=== PATIENT | male | born 1975 | race Caucasian/White ===

== ENCOUNTER 2025-03-30 19:42 | Inpatient (IN) | payer MEDICAID, OTHER ==
[~2025-03-30] VITALS: Ht 170.2 cm; Wt 134.2 kg
--- NOTE | 2025-03-30 19:58 | ELECTROCARDIOGRAPH REPORT ---
[facility] Test Date: 2025-03-30 Test Time: 19:54:56 Pat Name: DENITA MENDIETA Department: EMERGENCY ROOM Room: [place] [address] Gender: M Certification Engineer: : 1975 Requested By: OMER WHITMORE Order Number: [id number] Reading MD: Dr. Jose Cruz Measurements Intervals [place] Rate: 84 P: 0 IA: 0 QRS: -11 QRSD: 123 T: 192 QT: 319 QTc: 378 Interpretive Statements Afib/flut and V-paced complexes No further rhythm analysis attempted due to paced rhythm Nonspecific intraventricular conduction delay Nonspecific T abnrm, anterolateral leads Baseline wander in lead(s) V6 Electronically Signed On 03-31-2025 19:18:[address] Jose Cruz Please click the below link to view image of tracing.
--- NOTE | 2025-03-30 20:12 | Physician Documentation ---
History of Present Illness ~ Chief Complaint: Dizziness Stated Complaint: FALL Time Seen by MD: 20:00 HPI This very pleasant 49-year-old male presents after having a dizzy spell and a fall this afternoon on his right hip and knee this occurred at 5:00 p.m.. States he was looking for an apartment was going to his car felt slightly dizzy in the next thing he knew he was on the ground. Does not recall all of the event. Patient has a significant cardiac in neurological history including congestive heart failure atrial fibrillation TIA in 2005 TIA in May2024 in . He has had intermittent dizziness since May 2025 accompanied with nausea. His symptoms were significant enough that it precipitated referral to get a colonoscopy and endoscopy where a precancerous mass was removed along with multiple polyps the patient states 12% of the time he is in atrial fibrillation He states that his blood pressure is normally not low like it has been today. 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 He reports mi lead increased shortness of breath along with a current headache. In 2007 he had his appendix remove and in 2018 he has a had his gallbladder removed He is compliant with his medications the only medication he has not taken tonight is the 2nd dose of Lasix 40 mg. He takes Eliquis for atrial fibrillation as well. Patient does not currently have a social welfare research worker's as he is in between moving and job placement Review of Systems All Other Systems at this time: Reviewed and Negative ROS As stated above in the HPI, otherwise all systems are reviewed and negative. Physical Exam Vital Signs: Temperature: 97.6, Heart Rate: 105, Respiratory Rate: 16, BP: 93/61, Pulse Oximetry: 98 Oxygen Flow Rate: 0 Physical Exam General: Alert, no apparent distress. Respiratory: Lungs clear, no respiratory distress. Cardiovascular:AFIB rhythm, no murmurs. Gastrointestinal: Soft, nontender, nondistended. Bowels sounds present. Extremities: Normal range of motion, 3 +pitting edema BL/LE Neurologic: Oriented x4. Psychiatric: Normal mood and affect. Progress Results/Orders Results/Orders Orders - JACQUES PHAN NP Ct Head (03/30/25 21:01) Page Hospitalist (03/30/25 ) Completed Orders - JACQUES PHAN ASSISTANT TRACK COACH Furosemide Inj (Lasix Inj) (03/30/25 20:50) Normal Saline 1000ml (0.9% Sodium Chlori (03/30/25 20:50) Ct Head (03/30/25 21:01) Vital Signs 03/30/25 03/30/25 19:45 20:33 Temp 97.6 Pulse 105 Resp 16 16 B/P (MAP) 93/61 Pulse Ox 98 O2 Flow Rate 0 Laboratory Tests Test 03/30/25 19:54 03/30/25 19:58 Glucometer 150 H White Blood Count 10.0 Red Blood Count 3.59 L Hemoglobin 11.4 L Hematocrit 34.1 L Mean Corpuscular Volume 95.0 Mean Corpuscular Hemoglobin 31.7 H Mean Corpuscular Hemoglobin Concent 33.3 Red Cell Distribution Width 13.8 Platelet Count 342 Mean Platelet Volume 7.4 Neutrophils (%) (Auto) 55.8 Lymphocytes (%) (Auto) 33.5 Monocytes (%) (Auto) 6.6 Eosinophils (%) (Auto) 3.7 Basophils (%) (Auto) 0.4 Neutrophils # (Auto) 5.6 Lymphocytes # (Auto) 3.4 Monocytes # (Auto) 0.7 Eosinophils # (Auto) 0.4 Basophils # (Auto) 0.0 CBC Comment Sodium Level 132 L Potassium Level 5.4 H Chloride Level 101 Carbon Dioxide Level 20.8 L Anion Gap 10 Blood Urea Nitrogen 49 H Creatinine 1.78 H Estimated GFR/1.73 m2 41 BUN/Creatinine Ratio 27.5 H Glucose Level 134 H Calcium Level 9.2 Troponin I High Sensitivity 6 Pro-B-Type Natriuretic Peptide 714 H Albumin 3.9 Chemistry Comments Medical Decision Making Findings This 49-year-old male presented with concerning signs including suspected syncope, symptomatic hypotension and a ground level fall.. His CT came back without any notable intracranial abnormalities. However this patient is an excellent historian and reports not having any previous kidney problems or injury. His laboratory results indicate he has an elevated BUN at 49 grossly diminished GFR indicating likely acute kidney injury. Additionally his legs are grossly edematous and he has been compliant with taking Lasix. Lastly he does not have a current social welfare research worker therefore I am going to request hospitalization for evaluation and hopefully a cardiology consult Differential Dx:Considerations: Include: anemia, CVA, dehydration, dysrhythmia, electrolyte imbalance, encephalopathy, Guillain-Covina, hypoglycemia, hypotension, hypovolemia, labyrinthitis, Meniere's disease, myasathenia gravis, myocardial infarction, pulmonary embolus, renal failure, respiratory failure, TIA, VBI, vertigo central, vertigo peripheral, vestibular neuronitis, other Departure Disposition: ADMITTED INPATIENT Impression: Primary Impression: Dizziness Additional Impressions: JONATHAN (acute kidney injury) Fall Condition: Stable Referrals: NO PRIMARY CARE PROVIDER (PCP) Education Educated: Patient Signature Scribe Signature: u Attestation: Scribed for Jacques Phan Filter Tender by Jacques Cisse NP . 03/30/25 20:46 JACQUES PHAN NP Mar 30, 2025 20:11
[2025-03-30 20:16] LABS: MEAN PLATELET VOLUME 7.4 FL (7.4-10.4); RED CELL DISTRIBUTION WIDTH 13.8 % (11.5-14.5)
--- NOTE | 2025-03-30 20:32 | RADIOLOGY REPORT ---
CLINICAL HISTORY: CP TECHNIQUE: Single view of the chest was obtained. COMPARISON: None FINDINGS: The heart size and pulmonary vasculature are normal. The lungs are clear. IMPRESSION: NO ACUTE CARDIOPULMONARY PROCESS.
--- NOTE | 2025-03-30 20:32 | RADIOLOGY REPORT ---
CLINICAL HISTORY: HIP PAIN,RIGHT TECHNIQUE: 2 views of the right hip were obtained. COMPARISON: None FINDINGS: No acute fracture or dislocation is seen. There are no significant degenerative changes. No significant soft tissue abnormality is seen. IMPRESSION: NO ACUTE RADIOGRAPHIC ABNORMALITY OF THE RIGHT HIP.
--- NOTE | 2025-03-30 20:33 | RADIOLOGY REPORT ---
CLINICAL HISTORY: KNEE PAIN,RIGHT TECHNIQUE: 4 views of the right knee were obtained. COMPARISON: None FINDINGS: No acute fracture or dislocation is seen. No joint effusion is evident. There are moderate tricompartmental degenerative changes of the right knee with medial joint space soft and tricompartmental osteophyte formation. Degenerative changes are worst at the medial compartment. IMPRESSION: NO ACUTE RADIOGRAPHIC ABNORMALITY OF THE RIGHT KNEE.
[2025-03-30 20:49] LABS: CREATININE 1.78 MG/DL (0.60-1.10); PRO BRAIN NATRIURETIC PEPTIDE 714 PG/ML (0-125); TOTAL CARBON DIOXIDE 20.8 MMOL/L (24-32); eGFR 41 ML/MIN
[2025-03-30] MEDS: normal saline 1000ML IV soln IVB ONE (20:50)
--- NOTE | 2025-03-30 21:12 | RADIOLOGY REPORT ---
CLINICAL HISTORY: dizziness w HX of TIA TECHNIQUE: Helical scanning was performed of the head from the skull base to the vertex. Multiplanar reconstructions were performed. This exam was performed according to our departmental dose optimization program. Up-to-date CT equipment and radiation dose reduction techniques are utilized as appropriate. CTDI 64.2 DLP 1240.1 COMPARISON: None FINDINGS: There is no evidence for acute intracranial hemorrhage, acute ischemic changes, mass, mass effect, or extra-axial fluid collection. There is no hydrocephalus or midline shift. There is no effacement of the cerebral sulci and basal subarachnoid cisterns. The magana-white matter differentiation is well maintained. The imaged paranasal sinuses are clear. IMPRESSION: NO ACUTE INTRACRANIAL ABNORMALITY SEEN.
[2025-03-30] MEDS: furosemide 10 MG/1 ML 10ml inj IV ONE (21:54)
[2025-03-30 23:05] VITALS: BP 115/64; PULSE 75; RESP 15; TEMP 98.3; O2SAT 98
--- NOTE | 2025-03-30 23:12 | HISTORY AND PHYSICAL-Residence ---
History & Physical Providers to CC Resident Creating Document: MARIE SANTIAGO, SAFIA ~ History of Present Illness Reason for Admit\Complaint: syncope History of Present Illness This is a 49-year-old male with a history of atrial fibrillation, CHF, TIA came to the ER after he had an episode of syncope. This evening he was hunting for an apartment and at around 5:00 p.m. he felt dizzy(described as feeling off balance) for about few minutes and he had a fall and lost consciousness. He does not remember the episode and there was no witness. When he woke up he was lying on the ground on the left side of his body. He does not think he hit his head. He believes that he was unconscious for about 30 seconds. When he woke up he was not confused. Denied any bowel or urinary incontinence during the episode, also denies any tongue biting. He denies any chest pain, palpitations, shortness of breadth before the fall. After the episode he continued to look for an apartment. Later he came to the ER because of the fall. He denies any fever, burning micturition, cough, vomiting or diarrhea. 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 He he is trying to make an appointment with a neurologist. He has a history of CHF with an ejection fraction of 40%. He had a cardiac catheterization done in May of 2024 which was apparently normal. The cause of CHF is not known, thinks that it could be congenital according to his edge stitcher He has a edge stitcher in [place], he is looking for a new edge stitcher in [place]. He has a family history of hypertrophic cardiomyopathy. He has a history of AFib and is on Eliquis. In November 2024 he was having nausea and an endoscopy and colonoscopy was done, showed precancerous lesions in the colon Course in the ER-patient was hypotensive at the time of admission, blood pressure of 90 /60. Was given 1 L bolus. Allergies: Coded Allergies: amoxicillin (Unverified Allergy, Severe, Hives and edema, 03/30/25) aspirin (Unverified Allergy, Unknown, nausea and vomiting, 03/30/25) lisinopril (Unverified Adverse Reaction, Unknown, nausea, 03/30/25) Past Medical History Past Medical History Atrial fibrillation, on Eliquis CHF, on carvedilol 12.5 b.i.d., losartan 50 b.i.d., Aldactone 25 b.i.d., Jardiance 10 mg, Lasix 40 mg b.i.d. TIA Precancerous lesions in the colon Past Surgical History Surgical History Comment Appendicectomy Cholecystectomy in 2017 Family history Diabetes in mother History of heart disease in the father side of the family, hypertrophic cardiomyopathy Past Social History Social History Comment Quit smoking 10 years ago, previously smoked for about 20 years, pack a day Occasional alcohol use No history of drug use He used to live in [place] with his family, recently moved to [place], he is in the process of moving his family here and is looking for an apartment. 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 ROS All Other Systems: Reviewed and Negative Constitutional: Denies: no symptoms reported, see HPI, chills, diaphoresis, fever, malaise, weakness, other Eyes: Denies: no symptoms reported, see HPI, pain, discharge, blurred vision, double vision, itching, photophobia, redness, tearing, other ENT: Denies: no symptoms reported, see HPI, ear pain, ear bleeding, ear discharge, hearing loss, ear ringing, nose pain, nose bleeding, nose congestion, nose discharge, throat pain, throat swelling, voice change, mouth pain, mouth bleeding, mouth swelling, other Respiratory: Denies: no symptoms reported, see HPI, cough, orthopnea, shortness of breath, SOB with exertion, SOB at rest, stridor, wheezing, hemoptysis, pain with breathing, other Cardiovascular: Denies: no symptoms reported, see HPI, chest pain, left arm pain, diaphoresis, lightheadedness, syncope, edema, palpitations, irregular heart rate, other Gastrointestinal: Denies: no symptoms reported, see HPI, abdomen distended, abdominal pain, nausea, vomiting, diarrhea, constipated, melena, hematemesis, hematochezia, rectal bleeding, rectal pain, dysphagia, poor appetite, poor fluid intake, other Genitourinary: Denies: no symptoms reported, see HPI, burning, discharge, dysuria, frequency, flank pain, hematuria, incontinence, pain, decreased urine output, urgency, other Musculoskeletal: Denies: no symptoms reported, see HPI, pain, swelling, back pain, gout, joint pain, joint swelling, muscle pain, muscle swelling, muscle stiffness, neck pain, other Exam Vitals: Vital Signs Date Time Temp Pulse Resp B/P (MAP) Pulse Ox O2 Delivery O2 Flow Rate FiO2 03/30/25 21:55 75 16 105/64 (78) 98 03/30/25 19:45 97.6 0 General: General: Awake and Alert, no acute distress. HEENT: Conjunctiva pink, Sclera clear, Mucus Membranes moist. Neck: Supple without masses and tenderness. Resp: Unlabored. Bilateral breath sounds equal. Heart: Irregular rhythm, normal S1 and S2, no rub, murmur or gallop. Abdomen: Soft, nontender, nondistended, no guarding, no rigidity Extremities: Normal ROM, no swelling, nontender. No cyanosis,clubbing or edema. CLEAN UP PERSON: No focal neurological deficits Skin: Warm and Dry. Diagnostic Data Last Recorded Lab Results: 03/30/25195703/30/[id number] Advance Care Planning Advanced Care plannin - 30 Minutes (I spent 17 minutes in discussing various resuscitative measures, the patient chose to be full code.) Additional Plan Assessment This is a 49-year-old male with a history of atrial fibrillation, CHF, TIA came to the ER after he had an episode of syncope. Patient is being admitted for further evaluation of syncope. Plan Syncope, cause under evaluation Ground level fall CT head showed no acute intracranial abnormalities Hip and knee [id number] -Orthostatic Patient was hypotensive with the time of admission, 1 L bolus was given in the ER, blood pressure improved Orthostatic vitals ordered NS@ 75 mL/hour Patient is on losartan 50 b.i.d., please consider decreasing the dose. -Cardiac Patient has a history of AFib, controlled ventricular rate, placed on telemetry monitoring Has a history of CHF-echo ordered. Troponins in the normal range, EKG showed AFib in CVR. -infection causes WBC count in the normal range Urine analysis and blood cultures ordered. -neurogenic Patient reported he has a history of TIA, arterial sclerosis brain Bilateral carotid vascular ultrasound ordered. History of AFib, CVR Naveen Vasc score 3 Patient is currently in AFib but the heart rate is controlled Continue patient's home medications carvedilol 12.5 b.i.d., apixaban 5 mg b.i.d. once the med rec is done. Chronic CHF, unknown ejection fraction, not in acute exacerbation ProBNP 714 Echo ordered Family history of hypertrophic cardiomyopathy Cardiac catheterization done in May 2024 which was apparently normal. Continue patient's home medication carvedilol, losartan, Aldactone, Jardiance, Lasix once the med rec is done. History of TIA The last episode of TIA is in December 2024, imaging at the time apparently showed arteriosclerosis and he is working on getting an appointment with neurologist. Started atorvastatin 40 mg daily. JONATHAN likely secondary to acute renal tubular stasis Hyperkalemia Hyponatremia Creatinine 1.78, BUN 49, sodium 132, potassium 5.4 Baseline creatinine is not known Urine electrolytes ordered Started on IV fluids NS@ 75 mL/hour Avoid nephrotoxin agents Follow up with repeat labs. Code status: Full code DVT prophylaxis: Apixaban Diet: Heart healthy diet Line/tubes: Peripheral IV Disposition: Continue patient's home medications, follow up with the echo, carotid Ultrasound. Adjust the patient's blood pressure medications. Marie Santiago M.D PGY2 Patient seen and evaluated. I agree with the assessment and plan with the resident as above with no change. Adeline Mc MD Critical Care Date of Service: Mar 30, 2025 Billing Provider: ADELINE MC MD, PRAVAHIKA, RES Mar 30, 2025 23:12 ADELINE MC MD Apr 01, 2025 20:01
[2025-03-30] MEDS ORDERED: magnesium hydroxide 30ml (MOM) UD suspension PO PRN (23:35)
[2025-03-30] MEDS ORDERED: magnesium Cl slow-release 64mg tablet PO PRN (23:35)
[2025-03-30] MEDS ORDERED: potassium Cl 40MEQ/1/2NS 520ml 520 ML IV PRN (23:35)
[2025-03-30] MEDS ORDERED: magnesium sulf-water 2g/50mL 50 ML IV PRN (23:35)
[2025-03-30] MEDS ORDERED: potassium Cl 20 mEq SR tablet PO PRN ×2 (23:35)
[2025-03-30] MEDS ORDERED: HYDROcodone/acetaminophen 5mg/325mg tablet PO PRN (23:35)
[2025-03-30] MEDS ORDERED: mag hydrox/Alum hydrox/simeth 30ml oral suspension PO PRN (23:35)
[2025-03-30] MEDS ORDERED: magnesium sulf-water 4G/100mL 100 ML IV PRN (23:35)
[2025-03-30] MEDS ORDERED: ondansetron/PF 4mg/2ml inj IV PRN (23:35)
[2025-03-31] VITALS (13 sets, daily range): BP systolic 90–121; BP diastolic 50–71; PULSE 19–87; RESP 14–18; TEMP 97.2–98; O2SAT 94–98
[2025-03-31] MEDS: normal saline 1000ml 1,000 ML IV SCH (00:26)
[2025-03-31 06:05] LABS: MEAN PLATELET VOLUME 7.4 FL (7.4-10.4); RED CELL DISTRIBUTION WIDTH 13.6 % (11.5-14.5)
[2025-03-31 06:12] LABS: CREATININE,URINE RANDOM 33.0 MG/DL; UA UREA RANDOM 380.0 MG/DL
[2025-03-31 06:14] LABS: OSMOLALITY UA 363.0 MOSM/K (50-1400)
[2025-03-31 06:20] LABS: CHOL/HDL RATIO 3.2 (0.00-4.99); CREATININE 1.55 MG/DL (0.60-1.10); LDL CHOLESTEROL 86 MG/DL (50-100); TOTAL CARBON DIOXIDE 19.1 MMOL/L (24-32); eCRCL 53 ML/MIN; eGFR 48 ML/MIN
[2025-03-31 06:23] LABS: LEUKOCYTE ESTERASE ,URINE NEGATIVE (Neg); NITRITES, URINE NEGATIVE (Neg); OCCULT BLOOD,URINE NEGATIVE (Neg)
[2025-03-31 06:29] LABS: UA COLLECTION TYPE CLN CATCH MIDSTREAM
[2025-03-31] MEDS: K and/or MAG REPLACEMENT MC SCH (08:00)
[2025-03-31] MEDS: docusate sod 100mg capsule PO SCH (08:00)
--- NOTE | 2025-03-31 13:24 | VASCULAR REPORT ---
CAROTID DOPPLER ULTRASOUND HISTORY: None COMPARISON: None TECHNIQUE: Real time magana scale, color Doppler, and spectral duplex images are obtained through the carotid and vertebral arteries. Findings: Peak systolic velocity right internal carotid artery is 103 cm/s and right common carotid artery is 98 cm/s. Ratio is 1.4. Antegrade flow noted in right vertebral artery. Mild atherosclerotic plaque noted within the right carotid arterial system. Peak systolic velocity left internal carotid artery is 86 cm/s and left common carotid artery is 123 cm/s. Ratio is 0.7. Antegrade flow noted in left vertebral artery. Mild atherosclerotic plaque noted within the left carotid arterial system. Impression: 1. No evidence of hemodynamically significant stenosis within the bilateral carotid arterial systems. 2. Antegrade flow within bilateral vertebral arteries. Stenosis ICA/CCA PSV ratio PSV 0-40% < 1.5 25-110 cm/s 40-59% < 1.8 > 120 cm/s 60-79% 1.8-3.7 > 130 cm/s 80-99% > 3.7 < 25 cm/s, > 250 cm/s
[2025-03-31] MEDS ORDERED: FAMO40TA86 PO (14:47)
[2025-03-31] MEDS ORDERED: CARV25TA3 PO (14:47)
[2025-03-31] MEDS ORDERED: CARV12.549 PO (14:47)
[2025-03-31] MEDS ORDERED: ONDA-243 PO (14:47)
[2025-03-31] MEDS ORDERED: EMPA10TA PO (14:47)
[2025-03-31] MEDS ORDERED: SPIR25TA5 PO (14:47)
[2025-03-31] MEDS ORDERED: APIX5TAB3 PO (14:47)
[2025-03-31] MEDS ORDERED: ONDA-104 (14:47)
[2025-03-31] MEDS ORDERED: FURO40TA4 PO (14:47)
[2025-03-31] MEDS ORDERED: LOSA50TA64 PO (14:47)
[2025-03-31] MEDS ORDERED: LEVO5TAB13 (14:47)
[2025-03-31] MEDS ORDERED: POTA-205 (14:47)
[2025-03-31] MEDS ORDERED: ACET-3447 (14:49)
--- NOTE | 2025-03-31 18:35 | CARDIOLOGY REPORT ---
APPROVED REPORT EXAM: Comprehensive 2D, Doppler, and color-flow Echocardiogram. Patient Location: [facility] Blood Pressure: 92/57 mmHg Heart Rate: 81 bpm Rhythm: Atrial Fibrillation Indications Congestive Heart Failure Dizziness ProBNP: 714 HX of CHF HX of Afib HX of TIA x 2 (2005, 2023) NO LENS GENERATOR NO Previous ECHO 2D Dimensions LA Diam 4.5 cm IVSd 0.8 (0.7-1.1cm) LVDd 5.0 cm PWd 1.1 (0.7-1.1cm) IVSs 1.2 (0.8-1.2cm) LVDs 3.7 (2.5-4.0cm) PWs 1.4 (0.8-1.2cm) LVOT Diameter 1.97 (1.8-2.4cm) LVEF(%) 49.6 (>50%) Ao Asc Diam. 2.55 cm IVC 16.63 mm FS (%) 25.2 % SV 58.0 ml CO 4.9 L/min M-Mode Dimensions Left Atrium(MM) 5.30 (2.5-4.0cm) Aortic Root 3.31 (2.2-3.7cm) Aortic Cusp Exc 1.89 (1.5-2.0cm) MV EPSS 1.9 (<0.5cm) Aortic Valve AoV Peak Toney. 110.7 cm/s AoV VTI 18.9 cm AO Peak GR. 4.9 mmHg AO Mean GR. 3 mmHg LVOT VTI 18.42 cm LVOT Peak Toney. 80.9 cm/s BEN(VTI)/BSA 2.98 cm2/m2 BEN (VTI) 2.98 cm2 TDI Lateral E' P. V 16.28 cm/s Tricuspid Valve TR P. Velocity 190 cm/s RAP ESTIMATE 10 mmHg TR Peak Gr. 14 mmHg RVSP 24 mmHg LEFT VENTRICLE Normal LV size and wall thickness. Overall systolic function is low normal. LVEF is 50-55%. RIGHT VENTRICLE RV is normal size and function. ATRIA Left atrium is moderate to severely dilated. AORTIC VALVE Trileaflet AV appears mildly sclerotic without stenosis. No insufficiency. MITRAL VALVE Mild mitral annular calcification without stenosis. Trace regurgitation. TRICUSPID VALVE The tricuspid valve is normal in structure with trace regurgitation. PULMONIC VALVE The pulmonary valve is normal in structure with physiologic insufficiency. GREAT VESSELS The aortic root is normal in size. The ascending aorta is normal in size. The IVC is normal in size and collapses >50% with inspiration. PERICARDIUM Normal pericardium. No effusion. Other Information Study Quality: Adequate Conclusion Normal LV size and wall thickness. Overall systolic function is low normal. LVEF is 50-55%. RV is normal size and function. Left atrium is moderate to severely dilated. Trileaflet AV appears mildly sclerotic without stenosis. No insufficiency. Mild mitral annular calcification without stenosis. Trace regurgitation. The tricuspid valve is normal in structure with trace regurgitation. Normal pericardium. No effusion.
--- NOTE | 2025-03-31 19:13 | PROGRESS NOTE ---
Daily Progress Note Providers to CC ~ Antibiotic Timeout Antibiotic Ordered?: No Subjective Patient was seen in presence of nursing staff his blood pressure it was soft manual blood pressure checked 96/60. We will continue to monitor vitals closely. We will follow further workup for syncope. Patient is seen only one time by manufacturing specialist. Old record requested and nursing staff Danielle moffett. Objective Vital Signs Date Time Temp Pulse Resp B/P (MAP) Pulse Ox O2 Delivery O2 Flow Rate FiO2 03/31/25 15:00 97.7 78 18 111/63 (79) 98 Room Air 03/30/25 19:45 0 Result Diagram: 03/31/25 0542 03/31/25 0542 General-patient not in any acute distress, alert awake oriented, morbidly obese, chronically ill-appearing HEENT-atraumatic normocephalic, neck supple without elevated JVD, no thyromegaly or carotid bruit. No lymphadenopathy bilaterally. Eyes-no icterus or pallor seen in eyes Chest-clear to auscultation bilaterally, breathing nonlabored no tachypnea, no wheezing, no crepitation, no crackles. Heart-S1-S2 normal, regular heart rate no murmur Abdomen bowel sounds positive on auscultation, soft nondistended nontender no guarding, no rigidity Skin no active skin rash Neurology-grossly intact, nonfocal alert awake oriented Extremity- no pedal edema able to move all 4 extremities wearing compression stockings over lower Psychiatry - patient is not confused or agitated cooperated during physical examination Problem\Assessment\Plan This is a 49-year-old male with a history of atrial fibrillation, CHF, TIA came to the ER after he had an episode of syncope. Patient is being admitted for further evaluation of syncope. Plan Syncope, cause under evaluation Ground level fall CT head showed no acute intracranial abnormalities Hip and knee [id number] -Orthostatic vitals unremarkable Patient was hypotensive with the time of admission, 1 L bolus was given in the ER, blood pressure improved Orthostatic vitals ordered NS@ 75 mL/hour # Patient has a history of AFib, controlled ventricular rate, placed on telemetry monitoring Has a history of CHF-echo ordered and results reviewed LVEF is 50-55%. Troponins in the normal range, EKG showed AFib in CVR. Patient reported he has a history of TIA, arterial sclerosis brain Bilateral carotid vascular ultrasound ordered and results reviewed. History of AFib, CVR Naveen Vasc score 3 Patient is currently in AFib but the heart rate is controlled Continue patient's home medications carvedilol 12.5 b.i.d., apixaban 5 mg b.i.d. once the med rec is done. Chronic CHF, unknown ejection fraction, not in acute exacerbation ProBNP 714 Family history of hypertrophic cardiomyopathy Cardiac catheterization done in May 2024 which was apparently normal. Continue patient's home medication carvedilol, losartan, Aldactone, Jardiance, Lasix reviewed. Due to patient's borderline blood pressure patient's cardiac medication dose adjusted and we will continue to monitor his vitals History of TIA The last episode of TIA is in December 2024, imaging at the time apparently showed arteriosclerosis and he is working on getting an appointment with neurologist. Started atorvastatin 40 mg daily. JONATHAN likely secondary to acute renal tubular stasis Hyperkalemia Hyponatremia Creatinine 1.78, BUN 49, sodium 132, potassium 5.4 Baseline creatinine is not known Urine electrolytes ordered Started on IV fluids NS@ 75 mL/hour Avoid nephrotoxin agents will Follow up with repeat labs. old labs requested from nursing staff Code status: Full code DVT prophylaxis: Apixaban Diet: Heart healthy diet Line/tubes: Peripheral IV Patient's current condition is guarded we will continue to follow patient in AM Date of Service: Mar 31, 2025 Billing Provider: KARIN DELEON MD Common Visit Codes: [id number] INP/OBS CARE(HIGH) KARIN DELEON MD Mar 31, 2025 19:13
[2025-03-31] MEDS: midodrine 5mg tablet PO SCH (21:10)
[2025-04-01] VITALS (10 sets, daily range): BP systolic 82–119; BP diastolic 38–76; PULSE 71–102; RESP 13–20; TEMP 96.9–98.4; O2SAT 91–98
[2025-04-01 06:22] LABS: CREATININE 1.31 MG/DL (0.60-1.10); TOTAL CARBON DIOXIDE 23.7 MMOL/L (24-32); eCRCL 63 ML/MIN; eGFR 58 ML/MIN
[2025-04-01 06:25] LABS: MEAN PLATELET VOLUME 7.5 FL (7.4-10.4); RED CELL DISTRIBUTION WIDTH 13.5 % (11.5-14.5)
--- NOTE | 2025-04-01 12:25 | ELECTROCARDIOGRAPH REPORT ---
[facility] Test Date: 2025-04-01 Test Time: 12:23:12 Pat Name: DENITA MENDIETA Department: [facility] Patient ID: [id number]-[id number] Room: [place] [address] A Gender: M Casting Tester: PRISCA : 1975 Requested By: KARIN DELEON Order Number: [id number] Reading MD: Measurements Intervals [place] Rate: 77 P: 2 NJ: 280 QRS: -13 QRSD: 130 T: 269 QT: 438 QTc: 496 Interpretive Statements Sinus rhythm Prolonged [place] interval Left bundle branch block Please click the below link to view image of tracing.
[2025-04-01] MEDS: midodrine 5mg tablet PO SCH (14:10)
--- NOTE | 2025-04-01 18:43 | PROGRESS NOTE ---
Daily Progress Note Providers to CC ~ Antibiotic Timeout Antibiotic Ordered?: No Subjective Patient was seen in his room saturating well on room air. Patient did physical therapy and physical therapist noticed heart rate in 130s. Repeat EKG done showed signs of AFib rate controlled. Objective Vital Signs Date Time Temp Pulse Resp B/P (MAP) Pulse Ox O2 Delivery O2 Flow Rate FiO2 04/01/25 14:20 97.8 92 18 107/66 (80) 97 Room Air 03/30/25 19:45 0 Result Diagram: 04/01/25 0528 04/01/25 05 General-patient not in any acute distress, alert awake oriented, morbidly obese, chronically ill-appearing HEENT-atraumatic normocephalic, neck supple without elevated JVD, no thyromegaly or carotid bruit. No lymphadenopathy bilaterally. Eyes-no icterus or pallor seen in eyes Chest-clear to auscultation bilaterally, breathing nonlabored no tachypnea, no wheezing, no crepitation, no crackles. Heart-S1-S2 normal, regular heart rate no murmur Abdomen bowel sounds positive on auscultation, soft nondistended nontender no guarding, no rigidity Skin no active skin rash Neurology-grossly intact, nonfocal alert awake oriented Extremity- no pedal edema able to move all 4 extremities wearing compression stockings over lower Psychiatry - patient is not confused or agitated cooperated during physical examination Problem\Assessment\Plan This is a 49-year-old male with a history of atrial fibrillation, CHF, TIA came to the ER after he had an episode of syncope. Patient is being admitted for further evaluation of syncope. Plan Syncope, cause under evaluation Ground level fall CT head showed no acute intracranial abnormalities Hip and knee [id number] -Orthostatic vitals unremarkable Patient was hypotensive with the time of admission, 1 L bolus was given in the ER, blood pressure improved Orthostatic vitals ordered NS@ 75 mL/hour # Patient has a history of AFib, controlled ventricular rate, placed on telemetry monitoring Has a history of CHF-echo ordered and results reviewed LVEF is 50-55%. Troponins in the normal range, EKG showed AFib in CVR. Patient reported he has a history of TIA, arterial sclerosis brain Bilateral carotid vascular ultrasound ordered and results reviewed. Chronic AFib rate controlled Naveen Vasc score 3 Patient is currently in AFib but the heart rate is controlled Continue patient's home medications carvedilol apixaban 5 mg b.i.d Chronic CHF, unknown ejection fraction LVEF is 50-55%., not in acute exacerbation ProBNP 714 Family history of hypertrophic cardiomyopathy Cardiac catheterization done in May 2024 which was apparently normal. home medication carvedilol, losartan, Aldactone, Jardiance, Lasix reviewed. Due to patient's borderline blood pressure patient's cardiac medication dose adjusted and we will continue to monitor his vitals. Currently on Coreg lower dose. History of TIA The last episode of TIA is in December 2024, imaging at the time apparently showed arteriosclerosis and he is working on getting an appointment with neurologist. Started atorvastatin 40 mg daily. JONATHAN likely secondary to acute renal tubular stasis Hyperkalemia Hyponatremia Creatinine 1.78, BUN 49, sodium 132, potassium 5.4 Baseline creatinine is not known Urine electrolytes ordered Started on IV fluids NS@ 75 mL/hour Avoid nephrotoxin agents will Follow up with repeat labs. old labs requested from nursing staff Code status: Full code DVT prophylaxis: Apixaban Diet: Heart healthy diet Line/tubes: Peripheral IV Patient's current condition is guarded we will continue to follow patient in AM . Possible discharge in a.m. if clinically stable Date of Service: Apr 01, 2025 Billing Provider: KARIN DELEON MD Common Visit Codes: [id number] INP/OBS CARE(HIGH) KARIN DELEON MD Apr 01, 2025 18:43
[2025-04-02 02:00] VITALS: BP 119/98; PULSE 66; RESP 22; TEMP 97.4; O2SAT 96
[2025-04-02 06:00] VITALS: BP 119/62; PULSE 98; RESP 18; TEMP 97.9; O2SAT 99
[2025-04-02 06:00] LABS: MEAN PLATELET VOLUME 7.3 FL (7.4-10.4); RED CELL DISTRIBUTION WIDTH 13.4 % (11.5-14.5)
[2025-04-02 06:11] LABS: CREATININE 1.19 MG/DL (0.60-1.10); TOTAL CARBON DIOXIDE 22.9 MMOL/L (24-32); eCRCL 69 ML/MIN; eGFR 65 ML/MIN
[2025-04-02 11:00] VITALS: BP 106/61; PULSE 81; RESP 17; TEMP 98.1; O2SAT 98
--- NOTE | 2025-04-02 12:37 | RADIOLOGY REPORT ---
CLINICAL INDICATION: Rule out CVA. Indication for recent CT head was dizziness with history of TIA. COMPARISON: CT CT HEAD on DOS: 03/30/25 TECHNIQUE: Multisequence multiplanar MRI images of the brain were obtained without contrast. FINDINGS: T2 star sequence and sagittal T1 sequence are severely limited due to artifact. No acute infarct or hemorrhage. No mass or midline shift. There are scattered small foci of T2/FLAIR hyperintense signal in the periventricular and subcortical white matter, which are nonspecific, but may be seen with mild chronic small-vessel ischemic disease. Ventricles and sulci are within normal limits. Basal cisterns are patent. Cerebellum, brainstem, and midline structures are within normal limits. Paranasal sinuses are clear. Orbits are grossly unremarkable. IMPRESSION: 1. Motion limited study on some sequences. 2. No evidence of acute intracranial abnormality. 3. Scattered small foci of T2/FLAIR hyperintense signal in the periventricular and subcortical white matter are nonspecific, but may be seen with mild chronic small-vessel ischemic disease. Demyelinating disease could also have a similar appearance in the appropriate clinical setting. Correlate with clinical findings.
[2025-04-02] MEDS ORDERED: COR3.125T PO (12:42)
[2025-04-02] MEDS ORDERED: MIDO5TAB4 PO (12:42)
--- NOTE | 2025-04-02 19:26 | DISCHARGE SUMMARY ---
Discharge Summary Providers to CC ~ Discharge Summary Admission Diagnosis: syncope Hospital Course DATE OF ADMISSION: 03/30/25 DATE OF DISCHARGE: 04/02/25 Discharge Diagnosis\\Comment: Syncope 2/2 hypotension Prerenal JONATHAN likely 2/2 hypovolemia/vasomotor nephropathy Dehydration- POA AFib, CVR, CHADS-VASc 3 Chronic diastolic heart failure History of TIA Hyperkalemia Hyponatremia Operations\\Procedures: None Consultants: None Complications: None Condition on DC: Stable New Medications: Carvedilol (Carvedilol) 3.125 Mg Tablet 3.125 MG PO BID for 30 Days, #60 TAB Midodrine HCl (Midodrine HCl) 5 Mg Tablet 10 MG PO TID PRN for hypotension for 30 Days, #90 TAB Take 1 tablet by mouth three times daily as needed for SBP<100 Continued Medications: Acetaminophen (8Hr Arthritis Pain) 650 Mg Tablet.er PRN Apixaban (Eliquis) 5 Mg Tablet 1 TAB PO BID Empagliflozin (Jardiance) 10 Mg Tablet 1 TAB PO DAILY Famotidine (Famotidine) 40 Mg Tablet 1 TAB PO HS Levocetirizine Dihydrochloride (Levocetirizine Dihydrochloride) 5 Mg Tablet ONDANSETRON ODT 4mg tablet (Ondansetron Odt) 4 Mg Tab.rapdis 0.5 TAB PO PRN Potassium Chloride (Potassium Chloride) 10 Meq Tab.prt.sr Discontinued Medications: Carvedilol (Carvedilol) 12.5 Mg Tablet 1 TAB PO BID Carvedilol (Carvedilol) 25 Mg Tablet 0.5 TAB PO BID Furosemide (Furosemide) 40 Mg Tablet 1 TAB PO BID Losartan Potassium (Losartan Potassium) 50 Mg Tablet 1 TAB PO BID Ondansetron HCl (Ondansetron HCl) 8 Mg Tablet PRN Spironolactone (Spironolactone) 25 Mg Tablet 1 TAB PO BID Discharge Summary: History of Present Illness From H&P: "This is a 49-year-old male with a history of atrial fibrillation, CHF, TIA came to the ER after he had an episode of syncope. This evening he was hunting for an apartment and at around 5:00 p.m. he felt dizzy (described as feeling off balance) for about few minutes and he had a fall and lost consciousness. He does not remember the episode and there was no witness. When he woke up he was lying on the ground on the left side of his body. He does not think he hit his head. He believes that he was unconscious for about 30 seconds. When he woke up he was not confused. Denied any bowel or urinary incontinence during the episode, also denies any tongue biting. He denies any chest pain, palpitations, shortness of breadth before the fall. After the episode he continued to look for an apartment. Later he came to the ER because of the fal l. He denies any fever, burning micturition, cough, vomiting or diarrhea. He recently moved from [place] to [place]. His 1st TIA was in May 2006, 2nd TIA was in December 2024, showed findings of arterial sclerosis in the brain. He he is trying to make an appointment with a neurologist. He has a history of CHF with an ejection fraction of 40%. He had a cardiac catheterization done in May of 2024 which was apparently normal. 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 He has a family history of hypertrophic cardiomyopathy. He has a history of AFib and is on Eliquis. In November 2024 he was having nausea and an endoscopy and colonoscopy was done, showed precancerous lesions in the colon." Hospital Course Diagnostic findings were notable for hypotension. Pertinent negative findings were unremarkable EKG with controlled rate atrial fibrillation, unremarkable pBNP, negative orthostatic hypotension, negative carotid ultrasound, negative chest x-ray, negative knee and hip x-ray, unremarkable urinalysis, TTE revealing LVEF of 50-55% without significant valvular disease including aortic stenosis, normal troponin series, negative head CT. Patient was treated with intravenous fluids and midodrine. A subsequent MRI head revealed no evidence of acute intracranial abnormality. Patient did not experience further complications throughout the entire hospital stay and remained clinically and hemodynamically stable. Patient was seen and examined on the day of discharge. On day of discharge, vss, tele afib in 80s, labs notable for resolving acute kidney injury. All labs, diagnostic workups, discharge plan discussed with patient in details during visit before discharge. All questions and concerns answered to the best of my professional knowledge. Patient is to be discharged to home to self and to follow up with PCP within 2 weeks. Patient's home bbx dose was adjusted upon discharge. Physical Exam General: A&Ox 3, NAD HEENT: Normocephalic, PERRLA Neck: Supple, trachea midline, no JVD Chest: Clear to auscultation bilaterally Cardiovascular: IRIR GI: Soft and nontender Extremities: No cyanosis/clubbing/or edema [employer]: CN II-XII intact, no focal deficits Musculoskeletal: No paraspinal muscle tenderness, no muscle spasm Skin: Warm and intact *Problems/Diagnosis: (1) Dizziness Status: Acute Total Time Spent on D/C: > 30 Minutes Date of Service: Apr 02, 2025 Billing Provider: ANGELINE BURKETT Common Visit Codes: [id number]-ZML/OBS DISCH DAY >30min ANGELINE BURKETT Apr 02, 2025 19:22
== END 2025-04-02 15:02 | disposition home or self-care (01) | DRG 207 ==
LOC: ER 19:43 → PCU 3S 21:42 → UNDOADMIN 23:26
PROVIDERS: ADMIT Internal Medicine Pulmonary Disease; ATTEND Internal Medicine
DX: I95.9 Hypotension, unspecified (principal); N17.0 Acute kidney failure with tubular necrosis; I50.9 Heart failure, unspecified; I50.32 Chronic diastolic (congestive) heart failure; E87.1 Hypo-osmolality and hyponatremia; I48.91 Unspecified atrial fibrillation; E87.5 Hyperkalemia; E86.0 Dehydration; Z79.01 Long term (current) use of anticoagulants; Z86.73 Personal history of transient ischemic attack (TIA), and cerebral infarction without residual deficits
CPT/HCPCS: 36415; 70450; 70551; 71045; 73502; 73564; 80048; 80061; 80076; 81003; 82570; 82948; 83036; 83605; 83735; 83880; 83935; 84133; 84300; 84484; 84540; 85025; 87040; 87081; 87207; 93005; 93306; 93880; 96361; 96374; 97116; 97162; 97530; 99285; G0378; J1938; J7030

== ENCOUNTER 2025-05-27 20:05 | Inpatient (IN) | payer MEDICAID ==
[~2025-05-27] VITALS: Ht 170.2 cm; Wt 136.7 kg
[~2025-05-27 20:05] MED LIST: ACET-3447; APIX5TAB3 PO; COR3.125T PO; EMPA10TA PO; FAMO40TA86 PO; LEVO5TAB13; MIDO5TAB4 PO; ONDA-243 PO; POTA-205
--- NOTE | 2025-05-27 20:45 | ELECTROCARDIOGRAPH REPORT ---
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 GARY Toth Measurements Intervals [place] Rate: 126 P: 0 MO: 0 QRS: -41 QRSD: 143 T: 128 QT: 361 QTc: 523 Interpretive Statements Age not entered, assumed to be 49 years old for purpose of ECG interpretation Atrial fibrillation Left bundle branch block Electronically Signed On 05-30-2025 15:15:[address] GARY Toth Please click the below link to view image of tracing.
[2025-05-27 21:01] LABS: MEAN PLATELET VOLUME 7.9 FL (7.4-10.4); RED CELL DISTRIBUTION WIDTH 14.5 % (11.5-14.5)
--- NOTE | 2025-05-27 21:01 | RADIOLOGY REPORT ---
CHEST RADIOGRAPH REASON FOR EXAM: Chest pain COMPARISON: DI CHEST,SINGLE VIEW on DOS: 03/30/25 TECHNIQUE: One view of the chest is provided FINDINGS: The cardiomediastinal silhouette is within normal limits for technique. There is no focal airspace disease. There is no significant pleural effusion. No acute bony abnormality is identified. IMPRESSION: No radiographic evidence of acute cardiopulmonary process.
[2025-05-27 21:16] LABS: CREATININE 1.46 MG/DL (0.60-1.10); PRO BRAIN NATRIURETIC PEPTIDE 10654 PG/ML (0-125); TOTAL CARBON DIOXIDE 27.6 MMOL/L (24-32); eGFR 51 ML/MIN
--- NOTE | 2025-05-27 22:30 | Physician Documentation ---
History of Present Illness ~ Chief Complaint: Palpitations Stated Complaint: PNEUMONIA Time Seen by MD: 22:27 HPI Patient presents to the emergency room for evaluation of possible atrial fibrillation. Patient has been treated for pneumonia in his just finished a Z- Peng prescribed by urgent care that has going to follow up and they noted that has heart rate was high and they wanted him to come to the emergency room for evaluation of atrial fibrillation. Patient has history of atrial fibrillation reports taken anticoagulation. He is unsure of when he jumped into AFib RVR that has states that has upon his last evaluation that he is in atrial fibrilla tion 12% of the time. He denies any chest pain. He has been generally feeling ill this past week and reports coughing up lots of phlegm Medication Reconciliation Allergies: Coded Allergies: amoxicillin (Unverified Allergy, Severe, Hives and edema, 03/30/25) aspirin (Unverified Allergy, Unknown, nausea and vomiting, 03/30/25) lisinopril (Unverified Adverse Reaction, Unknown, nausea, 03/30/25) Scheduled Acetaminophen (8Hr Arthritis Pain), PRN, (Reported) Apixaban (Eliquis), 1 TAB PO BID, (Reported) Carvedilol (Carvedilol), 3.125 MG PO BID Empagliflozin (Jardiance), 1 TAB PO DAILY, (Reported) Famotidine (Famotidine), 1 TAB PO HS, (Reported) ONDANSETRON ODT 4mg tablet (Ondansetron Odt), 0.5 TAB PO PRN, (Reported) Scheduled PRN Midodrine HCl (Midodrine HCl), 10 MG PO TID PRN for hypotension Miscellaneous Medications Levocetirizine Dihydrochloride (Levocetirizine Dihydrochloride), (Reported) Potassium Chloride (Potassium Chloride), (Reported) Review of Systems ROS All review of systems negative except as per HPI Physical Exam Vital Signs: Temperature: 96.3, Source: Temporal, Heart Rate: 121, Respiratory Rate: 21, BP: 155/108, Pulse Oximetry: 96 Physical Exam General: Patient is awake, alert, oriented x4 in no acute distress Head: Normocephalic and atraumatic. Eyes: Conjunctival normal. EOMI. PERRL. ENT: Mucous membranes moist. Neck: Supple, trachea is midline. Chest: Clear to auscultation bilaterally without rales, rhonchi, or wheezes. There is no accessory muscle use or retractions. Cardiac: Tachycardic in her regular without murmurs, gallops, or rubs. Abd: Soft, nondistended, nontender, with normoactive bowel sounds. No guarding, rebound, or rigidity. Progress Results/Orders Results/Orders Orders - BHAVIN MATHEWS MD Chest,Single View (05/27/25 20:44) Monitor (05/27/25 20:44) Saline Lock (05/27/25 20:44) Oxygen (05/27/25 20:44) Page Hospitalist (05/28/25 00:31) Fill Out Med Reconciliation (05/28/25 00:31) Completed Orders - BHAVIN MATHEWS MD Chest,Single View (05/27/25 20:44) Cbc/Diff (05/27/25 20:44) BMP (05/27/25 20:44) PBNP (05/27/25 20:44) Electrocardiogram (05/27/25 20:44) Hs Troponin I W Calculations (05/27/25 20:44) Hs Troponin I W Calculations (05/27/25 22:44) Normal Saline 1000ml (0.9% Sodium Chlori (05/27/25 22:45) Metoprolol Tartrate Inj (Lopressor Iv) (05/27/25 22:45) Diltiazem Iv (Cardizem Iv 5mg/Ml Inj.) (05/27/25 23:55) Acetaminophen 325mg Tablet (Tylenol Tabl (05/28/25 01:35) MG (05/27/25 20:41) Medications Received in ER Medications (Trade) Dose Ordered Sig/Lane Route PRN Reason Start Time Stop Time Status Last Admin Dose Admin Sodium Chloride 1,000 ml @ 1,000 mls/hr ONCE ONCE IV 05/27/25 22:45 05/27/25 23:44 DC 05/27/25 23:09 1,000 MLS/HR (Lopressor IV) 5 mg Q15M IV 05/27/25 22:45 05/27/25 23:16 DC 05/27/25 23:43 5 MG (Cardizem IV 5mg/ ml inj.) 10 mg ONCE ONCE IV 05/27/25 23:55 05/27/25 23:56 DC 05/28/25 00:10 10 MG (Tylenol tablet) 650 mg ONCE ONCE PO 05/28/25 01:35 05/28/25 01:36 DC 05/28/25 01:41 650 MG Vital Signs 05/27/25 05/27/25 05/27/25 05/27/25 20:29 22:29 22:29 23:01 Temp 96.3 Pulse 121 132 118 Resp 21 14 21 20 B/P (MAP) 155/108 151/118 (129) 153/120 (131) Pulse Ox 96 96 96 O2 Flow Rate 0 0 05/27/25 05/27/25 05/27/25 05/27/25 23:04 23:22 23:37 23:43 Pulse 121 105 105 102 Resp 16 B/P (MAP) 138/108 (118) Pulse Ox 97 O2 Flow Rate 0 05/28/25 05/28/25 05/28/25 00:10 00:22 01:00 Pulse 107 78 87 Resp 16 27 B/P (MAP) 147/118 147/118 (128) 155/116 (129) Pulse Ox 98 92 O2 Flow Rate 0 0 Laboratory Tests Test 05/27/25 20:41 05/27/25 22:44 White Blood Count 11.1 H Red Blood Count 4.39 L Hemoglobin 13.8 L Hematocrit 41.8 L Mean Corpuscular Volume 95.2 Mean Corpuscular Hemoglobin 31.5 H Mean Corpuscular Hemoglobin Concent 33.0 Red Cell Distribution Width 14.5 Platelet Count 313 Mean Platelet Volume 7.9 Neutrophils (%) (Auto) 79.0 H Lymphocytes (%) (Auto) 12.1 L Monocytes (%) (Auto) 5.8 Eosinophils (%) (Auto) 2.6 Basophils (%) (Auto) 0.5 Neutrophils # (Auto) 8.8 H Lymphocytes # (Auto) 1.3 Monocytes # (Auto) 0.6 Eosinophils # (Auto) 0.3 Basophils # (Auto) 0.1 CBC Comment Sodium Level 141 Potassium Level 4.2 Chloride Level 104 Carbon Dioxide Level 27.6 Anion Gap 9 Blood Urea Nitrogen 14 Creatinine 1.46 H Estimated GFR/1.73 m2 51 BUN/Creatinine Ratio 9.6 L Glucose Level 170 H Calcium Level 8.6 Magnesium Level 2.0 Troponin I High Sensitivity 12 13 Pro-B-Type Natriuretic Peptide 94972 H Albumin 3.7 Chemistry Comments Troponin I High Sens Percent Delta 8 Troponin I Hi Sens Absolute Change 1 EKG/XRAY/CT/US/VASC/MRI EKG : Additional Comment EKG interpreted by myself shows time of 2033, rate 126, atrial fibrillation, left axis deviation, left bundle-branch block. Chest X-Ray : Additional Comments Exam: CHEST,SINGLE VIEW CHEST RADIOGRAPH REASON FOR EXAM: Chest pain COMPARISON: DI CHEST,SINGLE VIEW on DOS: 03/30/25 TECHNIQUE: One view of the chest is provided FINDINGS: The cardiomediastinal silhouette is within normal limits for technique. There is no focal airspace disease. There is no significant pleural effusion. No acute bony abnormality is identified. IMPRESSION: No radiographic evidence of acute cardiopulmonary process. Medical Decision Making Additional information obtaine: N/A Findings Patient presents to the emergency room for evaluation of atrial fibrillation. He is found to be in AFib RVR. Differentials include but are not limited to dehydration, medication noncompliance, heart failure, ACS therefore emergent labs and imaging indicated. Labs and imaging reassuring. Patient continues to be in atrial fibrillation although he is rate controlled. Often several different options including outpatient management now that has heart rate is controlled, admission for Cardizem drip for likely chemical cardioversion overnight versus electric cardioversion. After discussing risks benefits and alternatives patient would prefer chemical cardioversion overnight. Differential Dx:Considerations: Include: angina / OR, atrial dysrhythmia, atrial fibrillation, atrial flutter, MAT, PACs, PSVT, sinus tachycardia, WPW, 1st degree AV block, 2nd degree AVB-type 1, 2nd degree AVB-type 2, 3rd degree AV block, PVCs, torsades de pointes, ventricular fibrillation, ventricular tachycardia, other Differential Dx:Considerations: Include anxiety/panic attack, Include digoxin toxicity, Include electrolyte disorder, Include heart failure, Include hyperthyroidism, Include hyperventilation, Include hypoxia, Include pacemaker m alfunction, Include pulmonary embolus, Include renal failure, Include other Departure Admitted to Inpatient Unit: yes, to hospitalist Impression: Primary Impression: Atrial fibrillation with RVR Condition: Fair Referrals: NO PRIMARY CARE PROVIDER (PCP) Signature Scribe Signature: No scribe Attestation: The note accurately reflects work and decisions made by me.Bhavin Mathews MD 05/28/25 00:30 BHAVIN MATHEWS MD May 27, 2025 22:30
[2025-05-27] MEDS: metoprolol tartrate 1mg/ml inj IV SCH (23:04)
[2025-05-27] MEDS: normal saline 1000ml 1,000 ML IV ONE (23:09)
[2025-05-28] VITALS (20 sets, daily range): BP systolic 102–163; BP diastolic 52–113; PULSE 78–109; RESP 15–24; TEMP 97.3–97.8; O2SAT 85–96
[2025-05-28] MEDS: diltiazem 5mg/ml 5ml inj. IV ONE (00:10)
[2025-05-28] MEDS ORDERED: potassium Cl 20 mEq SR tablet PO PRN ×2 (01:55)
[2025-05-28] MEDS ORDERED: mag hydrox/Alum hydrox/simeth 30ml oral suspension PO PRN (01:55)
[2025-05-28] MEDS ORDERED: potassium Cl 40MEQ/1/2NS 520ml 520 ML IV PRN (01:55)
[2025-05-28] MEDS ORDERED: magnesium Cl slow-release 64mg tablet PO PRN (01:55)
[2025-05-28] MEDS ORDERED: magnesium sulf-water 2g/50mL 50 ML IV PRN (01:55)
[2025-05-28] MEDS ORDERED: magnesium hydroxide 30ml (MOM) UD suspension PO PRN (01:55)
[2025-05-28] MEDS ORDERED: ondansetron/PF 4mg/2ml inj IV PRN (01:55)
[2025-05-28] MEDS ORDERED: ondansetron 4mg rapidly disintigrating tab PO PRN (01:55)
[2025-05-28] MEDS ORDERED: magnesium sulf-water 4G/100mL 100 ML IV PRN (01:55)
[2025-05-28] MEDS ORDERED: diltiazem-D5W 125mg/125ml 125 ML IV SCH (03:35)
[2025-05-28] MEDS ORDERED: CefTRIAXone/D5W-Rocephin 1gm 50 ML IV SCH (04:05)
--- NOTE | 2025-05-28 04:11 | HISTORY AND PHYSICAL-Residence ---
History & Physical Providers to CC Resident Creating Document: PREETIDICKSON, RES ~ History of Present Illness Reason for Admit\Complaint: Atrial fibrillation History of Present Illness 49-year-old male with a past medical history of congestive heart failure, Atrial fibrillation, HTN,Pneumonia and morbid obesity presents to the ED for evaluation of irregular heart rate. The patient was at an urgent care clinic after completing a course of antibiotics for pneumonia, where he was noted to have a heart rate in the 130s and elevated blood pressure, he was referred to the ED for further management. The patient reports generalized weakness, persistent cough with wheezing, and production of approximately one cup of white sputum. He also endorses sore throat and mild chest tightness rated 3/10 and Nausea. He denies palpitations, fever, chills, hemoptysis, dizziness, syncope, vomiting, abdominal pain, diarrhea, urinary symptoms, or recent weight loss. Regarding his CHF history, the patient reports shortness of breath and orthopnea, requiring five pillows and an inclined bed for comfort. He denies paroxysmal nocturnal dyspnea and lower extremity edema, sick contacts, or allergen exposure reported. The patient is on eliquis In ED- Patient received a dose of metaprolol and diltazem Allergies: Coded Allergies: amoxicillin (Unverified Allergy, Severe, Hives and edema, 03/30/25) aspirin (Unverified Allergy, Unknown, nausea and vomiting, 03/30/25) lisinopril (Unverified Adverse Reaction, Unknown, nausea, 03/30/25) Home Medications Home Medications Active Midodrine HCl 5 Mg Tablet 10 Mg PO TID PRN 30 Days Take 1 tablet by mouth three times daily as needed for SBP<100 Carvedilol 3.125 Mg Tablet 3.125 Mg PO BID 30 Days Reported 8Hr Arthritis Pain (Acetaminophen) 650 Mg Tablet.er PRN Ondansetron Odt (Ondansetron HCl) 4 Mg Tab.rapdis 0.5 Tab PO PRN Potassium Chloride 10 Meq Tab.prt.sr Levocetirizine Dihydrochloride 5 Mg Tablet Famotidine 40 Mg Tablet 1 Tab PO HS Jardiance (Empagliflozin) 10 Mg Tablet 1 Tab PO DAILY Eliquis (Apixaban) 5 Mg Tablet 1 Tab PO BID Past Medical History Past Medical History Atrial fibrillation, on Eliquis CHF TIA Precancerous lesions in the colon Past Surgical History Surgical History Comment Appendicectomy Cholecystectomy in 2017 Past Social History Social History Comment [facility] Quit smoking 10 years ago, previously smoked for about 20 years, pack a day Occasional alcohol use No history of drug use He used to live in [place] with his family, recently moved to [place], he is in the process of moving his family here and is looking for an apartment. 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 ROS Constitutional: Reports: no symptoms reported Eyes: Reports: no symptoms reported ENT: Reports: no symptoms reported Respiratory: Reports: cough (Patient endorses cough with thick white sputum about a cup size quantity), orthopnea, wheezing Cardiovascular: Reports: chest pain (Patient reports 3/10 chest discomfort which is nonradiating) Gastrointestinal: Reports: nausea Genitourinary: Reports: no symptoms reported Male Genitalia: Reports: no symptoms reported Neurological: Reports: no symptoms reported Musculoskeletal: Reports: no symptoms reported Integumentary: Reports: no symptoms reported Allergic/Immunologic: Reports: no symptoms reported Hematologic/Lymphatic: Reports: no symptoms reported Endocrine: Reports: intolerance to heat Psychiatric: Reports: no symptoms reported Exam Vitals: Vital Signs Date Time Temp Pulse Resp B/P (MAP) Pulse Ox O2 Delivery O2 Flow Rate FiO2 05/28/25 02:46 104 05/28/25 01:00 27 155/116 (129) 92 0 05/27/25 20:29 96.3 General: Awake , alert, and oriented x4 HEENT: Atraumatic, normocephalic, EOMI, anicteric sclera ; pink conjunctiva Neck: Trachea midline. Supple, full range of motion, no JVD Cardiac: Tachycardic, irregular, normal S1 and S2, no rub, no murmur or gallop Respiratory: Equal breath sounds bilaterally, no tachypnea, bilateral wheezes are heard on auscultation ,rub or rales, Chest wall is symmetric and without deformity. Gastrointestinal: Abdomen symmetric, non-distended, soft, non-tender, normal bowel sounds x4 quadrant, normoactive, no hepatosplenomegaly Neurological: Mental status exam: alert and consciousness, orientation, memory, speech - Cranial nerve test: Cranial nerves 2-12 intact - Motor system: Normal Nutrition, normal tone, Power 5/5, no involuntary movements - Sensory system: Intact - Reflex testing: Biceps, triceps and knee reflexes 2+ - Cerebellar: Normal Skin: Warm and dry Extremities : No Edema, peripheral pulses felt, No deformities Psychiatric:Appropriate mood and affect,No hallucinations or suicidal ideation Diagnostic Data Last Recorded Lab Results: 05/27/25204005/27/252040 Advance Care Planning Advanced Care plannin - 30 Minutes Additional Plan 49 years old male with history of atrial fibrillation, congestive heart failure, TIA, GERD presented to ED with irregular heart rate Atrial fibrillation with RVR Naveen Vasc score-3 Patient history of atrial fibrillation he takes carvedilol 3.5 mm, apixaban 5 mg at home EKG-heart rate of 126, atrial fibrillation with RVR , left bundle-branch block Troponin-negativ,Pro [id number] Chest x-ray-no evidence of acute cardiopulmonary process, imaging shows mild pleural effusion and infiltrates ED- metoprolol 5 mg, diltiazem 10 mg IV once given, patient called heart rate is 105 Started diltiazem drip 10 mg/hour-hold if systolic blood pressure is less than 100mm hg Started home med Eliquis 5 mg p.o. b.i.d. Follow up with the echocardiogram, daily labs, TSH Telemetry monitoring Community-acquired pneumonia covering Gram-positive, Gram-negative and atypical Patient recently finished a course of antibiotic for pneumonia with azithromycin, patient endorses cough and production of white sputum 1 cup in quantity WBC-11.1 Chest x-ray-no evidence of acute cardiopulmonary process, imaging shows mild pleural effusion and B/l infiltrates, on auscultation wheezing is present Started IV Rocephin 1 g, azithromycin 500 mg IV daily, Gauifenesin,Solumedrol 40mg IV BID Follow up with CT chest, Levobuterol and duonebs PRN, Incentive spirometry, Pricalcitonin, ESR, pricalcitonin Hypertension Patient takes midodrine for hypotension, but in Ed his blood pressures are elevated with systolic ranges from 160-190 Given a dose of Amlodipine 10mg and Started Hydralazine 10 IV PRN Hold medications if Systolic Bp is less than 100 Chest pain Likley 2/2 UA Differential includes-GERD proton Patient reports mild left chest discomfort with 3/10 intensity, no radiation EKG-shows AFib, left bundle-branch block troponins are negative Started nitroglycerin p.r.n., patient is allergic to aspirin, started atorvastatin 80 p.o. daily continue home med eliquis and started Pronix po daily Patient is on NPO, consider Lexiscan in a.m. Acute Congestive systolic heart failure with reduced ejection fraction-LVEF 50% Echo on 03/31/25- shows LVEF of 50%, RVSP 24mm patient report SOB with Orthopnea and no PND and associated with coughing Chest x-ray-no evidence of acute cardiopulmonary process, imaging shows mild pleural effusion and B/l infiltrates, [id number]-[id number] Given a dose of 20mg IV lasix, Continue home meds after med rec Strict I&O, Daily weights Follow up with Echocardiogram Chronic Kidney Disease Stage III patient base line creatinine is 1.3 today creatinine is 1.46 and BUN 14, BUN/Cr- 9.6 patient received 1000ml bolus in ED. Patient is currently on Diuretics, with strict I&O Follow up with Spot Urine studies Morbid obesity Patient has a BMI of 48.5, Considering His High BMI patient might need outpatient Sleep study he had a sleep study 10 years ago for his sleep walking Advance care: I spent a total of 16 minutes reviewing various resuscitative measures/ACP with patient. The patient decided to be Full code Code Status:Full DVT prophylaxis:Eliquis Analgesia/Sedation:Morphine Line/tube:peripheral Nutrition:heart healthy PT: Ordered Prognosis: Guarded Disposition: Patient monitored in PCU with 24 hours telemetry Dickson Christine PGY1-Internal Medicine Resident Date of Service: May 28, 2025 Billing Provider: SEAN RUIZ MD, SATISH, RES May 28, 2025 04:11
[2025-05-28] MEDS ORDERED: hydrALAZINE 20mg/ml inj. IV PRN (04:25)
[2025-05-28] MEDS: diltiazem-NS 100mg/100ml 100 ML IV SCH (04:33)
[2025-05-28] MEDS: azithromycin/NS 500mg/250ml 250 ML IV SCH (04:37)
[2025-05-28] MEDS: furosemide 10 MG/1 ML 10ml inj IV ONE (04:43)
[2025-05-28] MEDS: guaiFENesin ER 600mg tablet PO SCH ×2 (04:47→21:23)
[2025-05-28] MEDS: methylPREDNISolone sod succ/PF 40mg inj. IV SCH (04:51)
[2025-05-28] MEDS ORDERED: LEVALBUTEROL HCL 1.25 MG/3 ML VIAL.NEB INH PRN (05:00)
[2025-05-28] MEDS ORDERED: albuterol 2.5 MG/3 ML nebule NEB SCH (05:00)
[2025-05-28] MEDS ORDERED: ipratropium/albuterol 3ml nebule NEB SCH (07:00)
[2025-05-28] MEDS ORDERED: ipratropium/albuterol 3ml nebule NEB PRN (07:15)
[2025-05-28] MEDS: K and/or MAG REPLACEMENT MC SCH (08:00)
[2025-05-28] MEDS: docusate sod 100mg capsule PO SCH (08:00)
[2025-05-28] MEDS: CefTRIAXone/D5W-Rocephin 1gm 50 ML IV SCH (09:05)
[2025-05-28] MEDS: pantoprazole 40mg Tablet.DR PO SCH (09:06)
[2025-05-28] MEDS ORDERED: metoprolol tartrate 1mg/ml inj IV PRN ×2 (10:20→18:10)
[2025-05-28 10:23] LABS: MEAN PLATELET VOLUME 8.2 FL (7.4-10.4); RED CELL DISTRIBUTION WIDTH 14.3 % (11.5-14.5)
[2025-05-28 10:41] LABS: CREATININE 1.14 MG/DL (0.60-1.10); TOTAL CARBON DIOXIDE 24.2 MMOL/L (24-32); eCRCL 72 ML/MIN; eGFR 68 ML/MIN
[2025-05-28] MEDS: ipratropium/albuterol 3ml nebule NEB SCH (10:54)
[2025-05-28 12:17] LABS: LEUKOCYTE ESTERASE ,URINE NEGATIVE (Neg); NITRITES, URINE NEGATIVE (Neg); OCCULT BLOOD,URINE TRACE-INTACT (Neg)
[2025-05-28 12:24] LABS: SQUAMOUS EPITHELIAL CELL,UR FEW /LPF (FEW); UA COLLECTION TYPE NON-SPECIFIED
--- NOTE | 2025-05-28 12:38 | RADIOLOGY REPORT ---
Indication: Cough, SOB Technique: CT axial images of the chest are obtained without contrast. Coronal and sagittal reformats were obtained. Radiation Dose Information: CTDI volume is 19 mGy. Dose-length product is 660 mGy*cm Comparison: None FINDINGS: There is limited interpretation of the abdomen and pelvis without administration of intravenous contrast. The trachea is patent. No pneumothorax. No pulmonary airspace consolidation. Bilateral lower lobe atelectasis, gakd-nezlojt-tydu-right. Heart size at the upper limits of normal. Coronary artery calcification disease. Tiny bilateral pleural effusions. No supraclavicular or axillary lymphadenopathy. Hepatic steatosis. No aggressive osseous process. IMPRESSION: Limited evaluation without contrast. No pulmonary airspace consolidation. Bilateral lower lobe atelectasis. Tiny bilateral pleural effusions. Borderline cardiomegaly. Coronary artery calcification disease. Other findings as described.
[2025-05-28 12:41] LABS: OSMOLALITY UA 426.0 MOSM/K (50-1400)
[2025-05-28 12:43] LABS: CREATININE,URINE RANDOM 20.0 MG/DL; TOTAL PROTEIN,URINE RANDOM 21.6 MG/DL
[2025-05-28 13:13] LABS: UA EOSINOPHILS NO EOS /HPF
--- NOTE | 2025-05-28 17:58 | PROGRESS NOTE- Residence ---
Progress Note - Resident Providers to CC Resident Creating Document: OMAR CAMACHO RES ~ Antibiotic Timeout Antibiotic Ordered?: Yes Subjective Patient was seen and examined at bedside. He states improvement of the shortness of breath and chest discomfort since admission. He is still has productive cough of white/yellow sputum. No other symptoms reported. Objective Vital Signs Date Time Temp Pulse Resp B/P (MAP) Pulse Ox O2 Delivery O2 Flow Rate FiO2 05/28/25 15:12 98 18 Room Air 0.0 05/28/25 15:03 85 21 05/28/25 15:00 97.7 107/75 (86) Result Diagram: 05/28/25 0958 05/28/25 0958 Awake , alert, and oriented x4, morbidly obese HEENT: Atraumatic, normocephalic, EOMI, anicteric sclera ; pink conjunctiva Neck: Trachea midline. Supple, full range of motion, no JVD Cardiac: Controlled heart rate, irregular rhythm, normal S1 and S2, no rub, no murmur or gallop Respiratory: Diminished air movement bilaterally, no tachypnea, expiratory wheezing ,no crackles. Chest wall is symmetric and without deformity. Gastrointestinal: Abdomen symmetric, non-distended, soft, non-tender, normal bowel sounds x4 quadrant, normoactive, no hepatosplenomegaly Neurological: Mental status exam: alert and consciousness, orientation, memory, speech - Cranial nerve test: Cranial nerves 2-12 intact - Motor system: Normal Nutrition, normal tone, Power 5/5, no involuntary movements - Sensory system: Intact - Cerebellar: Normal Skin: Warm and dry Extremities : No pedal edema. Coagulation Studies Laboratory Tests Test 05/28/25 05:56 D-Dimer 0.23 MG/L FEU (0-0.50) D-Dimer Comment Plan Plan Assessment 49 years old male with history of atrial fibrillation, congestive heart failure, TIA, GERD presented to ED with irregular heart rate and productive cough, admitted for further evaluation and management. 1. Paroxysmal Atrial Fibrillation with RVR Acute on chronic Heart failure with reduced EF (35-40%) Chest pain, rule out ACS Naveen-VASc Score 3 point At admission: HR 126 bpm, AFib with LBBB on EKG. Complains of palpitation, increasing shortness for breath and orthopnea ED Management: Metoprolol 5 mg IV, Diltiazem 10 mg IV; Negative troponins, BNP 69141 Echo (preliminary): Overall systolic function is moderately reduced with global hypokinesis. Abnormal septal motion. LVEF is 35-40%. Minimal bilateral pleural effusions noted on CT Plan: Discontinue Cardizem drip Started on carvedilol 12.5 mg b.i.d. Metoprolol 5 mg IV p.r.n. Continue Eliquis 5 mg PO BID Continue Jardiance Started on low-dose Entresto; started spironolactone if tolerated Started on low-dose Lasix 20 mg p.o. daily Ordered A1c and lipid panel Ordered Lexiscan; hold carvedilol in the morning Continuous telemetry. 2. COPD exacerbation, failed outpatient management Obesity hypoventilation syndrome, BMI 48.5 Sleep apnea likely Persistent cough, wheezing, productive cough white sputum (~1 cup) WBC 11.1, normal ESR and procalcitonin CXR: No radiographic evidence of acute cardiopulmonary process. CT chest: No pulmonary airspace consolidation. Bilateral lower lobe atelectasis. Tiny bilateral pleural effusions. Plan: Continue ceftriaxone, day 1 Discontinued Azithromycin, received five days outpatient Increased Solu-Medrol to 62.5 mg b.i.d. Albuterol/ipratropium q.4 hours scheduled Incentive spirometry Outpatient sleep study recommended 3. Hypertensive urgency BP > 180/110mmHg in ED; patient previously on midodrine for hypotension. BP controlled after admission Plan: Currently on carvedilol, Entresto and low-dose Lasix Monitor BP closely. 4. Chronic Kidney Disease Stage IIIA Cr 1.46 (baseline 1.3), BUN 14 Plan: Monitor renal function daily. Avoid nephrotoxic agents. Code Status: Full code DVT prophylaxis: Kevin Anderson have spent 35 minutes of critical care with the patient. Disposition: Continue medical treatment. Pending Lexiscan. Resident attestation The above note has been reviewed and supervised by a senior resident PGY2/PGY3 Patient was seen, examined and discussed with the attending physician Dr Alexander Date of Service: May 28, 2025 Billing Provider: JOHN ALEXANDER MD, LUCAS, RES May 28, 2025 17:58
[2025-05-28] MEDS ORDERED: aminophylline 250mg/10ml inj. IV PRN (18:10)
[2025-05-28] MEDS ORDERED: albuterol 2.5 MG/3 ML nebule NEB PRN (18:20)
--- NOTE | 2025-05-28 18:39 | CARDIOLOGY REPORT ---
APPROVED REPORT EXAM: Limited 2D, Doppler, and color-flow Echocardiogram. 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 Velocity 308 cm/s RAP ESTIMATE 15 mmHg TR Peak Gr. 38 mmHg RVSP 53 mmHg LEFT VENTRICLE LV is mildly dilated with mild concentric hypertrophy. Overall systolic function is moderate to severely reduced with global hypokinesis. Abnormal septal motion. There is sttwqjar-rb-iwixpv LV systolic dysfunction present. Overall estimated LVEF is about 35-40%. RIGHT VENTRICLE RV appears mildly dilated with normal contractility. RVSP is estimated at 53 mmHG. ATRIA LA appears moderately to severely dilated. MITRAL VALVE MV is thickened with mild annular calcification. Trace mitral regurgitation. TRICUSPID VALVE The tricuspid valve is normal in structure. Moderate tricuspid regurgitation. GREAT VESSELS IVC is dilated and collapses less than 50% with inspiration. PERICARDIUM There is no pericardial effusion. Other Information Study Quality: Fair Conclusion There is ohckissw-bo-wbsmvd LV systolic dysfunction present. Overall estimated LVEF is about 35-40%. LV is mildly dilated with mild concentric hypertrophy. Overall systolic function is moderate to severely reduced with global hypokinesis. Abnormal septal motion. RV appears mildly dilated with normal contractility. RVSP is estimated at 53 mmHG. Trace mitral regurgitation.
[2025-05-28] MEDS: sacubitril/valsartan 24mg-26mg tablet PO SCH (21:23)
[2025-05-29] VITALS (27 sets, daily range): BP systolic 93–146; BP diastolic 61–97; PULSE 78–150; RESP 14–24; TEMP 97.1–98.2; O2SAT 90–95
[2025-05-29 06:07] LABS: MEAN PLATELET VOLUME 7.9 FL (7.4-10.4); RED CELL DISTRIBUTION WIDTH 14.0 % (11.5-14.5)
[2025-05-29 06:22] LABS: CHOL/HDL RATIO 3.0 (0.00-4.99); CREATININE 1.09 MG/DL (0.60-1.10); LDL CHOLESTEROL 67 MG/DL (50-100); TOTAL CARBON DIOXIDE 25.4 MMOL/L (24-32); eCRCL 76 ML/MIN; eGFR 72 ML/MIN
[2025-05-29] MEDS: EMPAGLIFLOZIN 10 MG TABLET PO SCH (08:10)
[2025-05-29] MEDS: regadenoson 0.4mg/5ml syringe IV PRN (09:02)
--- NOTE | 2025-05-29 10:19 | RADIOLOGY REPORT ---
HISTORY: Chest pain, global hypokinesis in echocardiogram TECHNIQUE: At peak stress, 34.9 mCi of sestamibi was administered intravenously. Soon thereafter, gated SPECT imaging of the heart was performed with the patient in the supine position. At rest, 8.7 mCi of sestamibi was administered intravenously. Soon thereafter, gated SPECT imaging of the heart was performed with the patient in the supine position. FINDINGS: There is a small fixed perfusion defect at the inferior wall. There is a tiny fixed perfusion defect at the cardiac apex. No reversible perfusion defect is seen. No reversible perfusion defect seen. There is global hypokinesis. The ejection fraction is 23%. IMPRESSION: Small fixed perfusion defect of the inferior wall. Tiny fixed perfusion defect at the cardiac apex. No reversible perfusion defect. Global hypokinesis with ejection fraction of 23%.
--- NOTE | 2025-05-29 15:13 | PROGRESS NOTE- Residence ---
Progress Note - Resident Providers to CC Resident Creating Document: RASHEEDA PHILLIPS, SAFIA ~ Central Line/PICC still needed: N\A Ramirez-Non Protocol Ramirez Indications Met/Not Met: F/C Indications Not Met Antibiotic Timeout Antibiotic Ordered?: Yes Subjective Patient was seen and examined at bedside after his Lexiscan. Is maintaining oxygen saturation above 90% on 2 L O2. He is still has productive cough of whitish sputum. No other symptoms reported. Objective Vital Signs Date Time Temp Pulse Resp B/P (MAP) Pulse Ox O2 Delivery O2 Flow Rate FiO2 05/29/25 13:11 100/68 (79) 05/29/25 11:58 22 92 Room Air 0.0 21 05/29/25 11:40 150 05/29/25 11:00 98.2 Result Diagram: 05/29/25 0535 05/29/25 0535 Awake , alert, and oriented x4, morbidly obese HEENT: Atraumatic, normocephalic, EOMI, anicteric sclera ; pink conjunctiva Neck: Trachea midline. Supple, full range of motion, no JVD Cardiac: Controlled heart rate, irregular rhythm, normal S1 and S2, no rub, no murmur or gallop Respiratory: Diminished air movement bilaterally, no tachypnea, expiratory wheezing ,no crackles. Chest wall is symmetric and without deformity. Gastrointestinal: Abdomen symmetric, non-distended, soft, non-tender, normal bowel sounds x4 quadrant, normoactive, no hepatosplenomegaly Neurological: Mental status exam: alert and consciousness, orientation, memory, speech - Cranial nerve test: Cranial nerves 2-12 intact - Motor system: Normal Nutrition, normal tone, Power 5/5, no involuntary movements - Sensory system: Intact - Cerebellar: Normal Skin: Warm and dry Extremities : No pedal edema. Coagulation Studies Laboratory Tests Test 05/28/25 05:56 D-Dimer 0.23 MG/L FEU (0-0.50) D-Dimer Comment Plan Plan Assessment 49 years old male with history of atrial fibrillation, congestive heart failure, TIA, GERD presented to ED with irregular heart rate and productive cough. He recently completed 1 course of antibiotic for pneumonia. He continues to have post infectious cough most likely due to bronchitis or failed outpatient management. Was diagnosed with heart failure with reduced ejection fraction in 2013. He was started on GDM T back then and his ejection fraction was improved to 45%. February of this year, due to insurance issues, he was not compliant with the medication. Currently his ejection fraction 35%. He has been restarted on GDM T. he has an appointment with a nurse practitioner in the selling specialist office. He is trying to find a new selling specialist on the side of the town while keeping his current appointment. 1. Paroxysmal Atrial Fibrillation with RVR Acute on chronic Heart failure with reduced EF (35-40%) Chest pain, ACS ruled out. Naveen-VASc Score 3 point -At admission: HR 126 bpm, AFib with LBBB on EKG. He continues to have episodes of tachycardia with heart rate reaching 120s l with no associated chest pain. This is most likely due to his atrial fibrillation with RVR but his respiratory treatment with albuterol can also be the contributing factor for his tachycardia. Recommended spacing out breathing treatment to Q 6 H. -carvedilol was increased to 25 mg p.o. b.i.d., continue Eliquis 5 mg p.o. b.i.d. -Lexiscan showed Small fixed perfusion defect of the inferior wall. Tiny fixed perfusion defect at the cardiac apex. No reversible perfusion defect. Negative troponins, BNP [id number] Echo (preliminary): Overall systolic function is moderately reduced with global hypokinesis. Abnormal septal motion. LVEF is 35-40%. -continue Jardiance 10 mg p.o. daily, Lasix 20 mg p.o. daily, Entresto 24/ half a tablet p.o. b.i.d. -started the patient on spironolactone 25 mg p.o. daily -strict input and output monitoring Ordered A1c is 5.7 lipid panel demonstrates total cholesterol of 113 with an LDL of 67 and HDL of 38 2. Acute COPD exacerbation with a acute respiratory failure, failed outpatient management Obesity hypoventilation syndrome, BMI 48.5 Sleep apnea likely Persistent cough, wheezing, productive cough white sputum (~1 cup) WBC and increasing trend, currently 12.6, normal ESR and procalcitonin CXR: No radiographic evidence of acute cardiopulmonary process. CT chest: No pulmonary airspace consolidation. Bilateral lower lobe atelectasis. Tiny bilateral pleural effusions. Plan: Continue ceftriaxone, day 2 Increased Solu-Medrol to 62.5 mg b.i.d. Albuterol/ipratropium q.6 hours scheduled Incentive spirometry q.1h as tolerated with the patient Outpatient sleep study recommended in view of elevated right heart pressures 3. Hypertensive urgency-resolved BP > 180/110mmHg in ED; patient previously on midodrine for hypotension. BP controlled after admission Monitor BP closely. 4. JONATHAN Creatinine leveling proved to 1.09 today Plan: Monitor renal function daily. Avoid nephrotoxic agents. Code Status: Full code DVT prophylaxis: Eliquis Disposition: Continue medical treatment in PCU Resident attestation The above note has been reviewed and supervised by a senior resident PGY2/PGY3 Patient was seen, examined and discussed with the attending physician Rasheeda Phillips Internal Medicine, PGY 1 [facility] Date of Service: May 29, 2025 Billing Provider: MARY JO STUART DO Common Visit Codes: 68214-[id number] INP/OBS CARE(HIGH) RASHEEDA PHILLIPS, RES May 29, 2025 15:13 MARY JO STUART DO May 29, 2025 16:01
[2025-05-29] MEDS: ipratropium/albuterol 3ml nebule NEB SCH (19:16)
[2025-05-30] VITALS (16 sets, daily range): BP systolic 114–146; BP diastolic 72–106; PULSE 81–111; RESP 13–22; TEMP 96.7–98.6; O2SAT 92–97
[2025-05-30 06:33] LABS: MEAN PLATELET VOLUME 8.3 FL (7.4-10.4); RED CELL DISTRIBUTION WIDTH 14.4 % (11.5-14.5)
[2025-05-30 06:54] LABS: CREATININE 1.12 MG/DL (0.60-1.10); TOTAL CARBON DIOXIDE 24.6 MMOL/L (24-32); eCRCL 74 ML/MIN; eGFR 69 ML/MIN
[2025-05-30] MEDS: HALLS - SOOTHE MENTHOL 1.8 MG cough drop LOZENGE MM PRN (08:49)
--- NOTE | 2025-05-30 17:06 | PROGRESS NOTE- Residence ---
Progress Note - Resident Providers to CC Resident Creating Document: BIBIANA LANDON, RES ~ Antibiotic Timeout Antibiotic Ordered?: Yes Subjective The patient was seen and examined at bedside today. He has no new complaints. He continues to cough with productive sputum. Objective Vital Signs Date Time Temp Pulse Resp B/P (MAP) Pulse Ox O2 Delivery O2 Flow Rate FiO2 05/30/25 15:00 97.3 104 15 121/87 (98) 93 Nasal Cannula 2.0 05/30/25 14:42 28 Result Diagram: 05/30/25 0509 05/30/25 0509 Awake, alert, and oriented x4, morbidly obese HEENT: Atraumatic, normocephalic, EOMI, anicteric sclera; pink conjunctiva Neck: Trachea midline. Supple, full range of motion, no JVD Cardiac: Controlled heart rate, irregular rhythm, normal S1 and S2, no rub, no murmur or gallop Respiratory: Diminished air movement bilaterally, coarse breath sounds in left upper lung field. Chest wall is symmetric and without deformity. Gastrointestinal: Abdomen symmetric, non-distended, soft, non-tender, normal bowel sounds x4 quadrant, normoactive, no hepatosplenomegaly Neurological: Mental status exam: alert and consciousness, orientation, memory, speech - Cranial nerve test: Cranial nerves 2-12 intact - Motor system: Normal Nutrition, normal tone, Power 5/5, no involuntary movements - Sensory system: Intact - Cerebellar: Normal Skin: Warm and dry Extremities : No pedal edema Coagulation Studies Laboratory Tests Test 05/28/25 05:56 D-Dimer 0.23 MG/L FEU (0-0.50) D-Dimer Comment Assessment Assessment A 49 years old male with history of atrial fibrillation, congestive heart failure, TIA, GERD presented to ED with irregular heart rate and productive cough. He recently completed 1 course of antibiotic for pneumonia. He continues to have post infectious cough most likely due to bronchitis or failed outpatient management. Plan Plan 1. Paroxysmal Atrial Fibrillation with RVR, Naveen-VASc Score 3 Acute on chronic Heart failure with reduced EF (35-40%) Chest pain, ACS ruled out -At admission: HR 126 bpm, AFib with LBBB on EKG. Current heart rate in 90s. -carvedilol was increased to 25 mg p.o. b.i.d., continue Eliquis 5 mg p.o. b.i.d. -Lexiscan showed Small fixed perfusion defect of the inferior wall. Tiny fixed perfusion defect at the cardiac apex. No reversible perfusion defect. -Negative troponins, BNP 03602 -Echo: LVEF 35-40%, moderate to severe LV systolic dysfunction. Global hypokinesis and abnormal septal motion. -continue GDMT - Jardiance 10 mg p.o. daily, Entresto half a tablet p.o. b.i.d., spironolactone 25 mg p.o. daily and Coreg 25 mg p.o. b.i.d. 2. Acute COPD exacerbation with acute respiratory failure, failed outpatient management Obesity hypoventilation syndrome, BMI 48.5 Sleep apnea likely Persistent cough, wheezing, productive cough white sputum (~1 cup) WBC increasing trend, currently 12.6 likely secondary to steroids, normal ESR and procalcitonin CXR: No radiographic evidence of acute cardiopulmonary process. CT chest: No pulmonary airspace consolidation. Bilateral lower lobe atelectasis. Tiny bilateral pleural effusions. Continue ceftriaxone, day 3 Continue Solu-Medrol to 62.5 mg b.i.d. Albuterol/ipratropium q.6 hours scheduled Incentive spirometry q.1h as tolerated with the patient Outpatient sleep study recommended in view of elevated right heart pressures 3. Hypertensive urgency-resolved BP > 180/110mmHg in ED; patient previously on midodrine for hypotension. BP controlled after admission Monitor BP closely. 4. JONATHAN possibly secondary to vasomotor nephropathy Kidney functions back to normal. Monitor renal function daily. Avoid nephrotoxic agents. Code Status: Full code DVT prophylaxis: Eliquis PT: Home with barriers Diet: Heart healthy diet Disposition: Continue medical treatment in PCU. Continue physical therapy. Anticipate discharge tomorrow. Bibiana Landon MD Internal Medicine Resident, PGY-2 The patient was seen, examined and discussed with the attending physician, Dr. Stuart. Date of Service: May 30, 2025 Billing Provider: MARY JO STUART SOWMYA MANJARI, RES May 30, 2025 17:06 MARY JO STUART DO May 30, 2025 17:23
[2025-05-31] VITALS (15 sets, daily range): BP systolic 108–132; BP diastolic 82–106; PULSE 70–112; RESP 16–20; TEMP 97.3–97.8; O2SAT 90–97
[2025-05-31 05:36] LABS: MEAN PLATELET VOLUME 8.2 FL (7.4-10.4); RED CELL DISTRIBUTION WIDTH 14.3 % (11.5-14.5)
[2025-05-31 05:50] LABS: CREATININE 1.05 MG/DL (0.60-1.10); TOTAL CARBON DIOXIDE 25.8 MMOL/L (24-32); eCRCL 79 ML/MIN; eGFR 75 ML/MIN
--- NOTE | 2025-05-31 16:49 | CONSULTATION REPORT ---
History of Present Illness Providers to CC CC: TRACEE AGEE MD ~ Reason for Admit\Admit Dx: Cardiology consultation History of Present Illness Patient presented with complaints of elevated heart rate 05/27/25. He had a recent diagnosis of pneumonia and was taking antibiotics. Cardiology consultation was requested today due to decreased LVEF. He does have a history of atrial fibrillation in his on oral anticoagulation. He states on multiple ZIO patches in the past he has had an AFib burden of approximately 12%. History of CHF with reduced ejection fraction back in 2013. Has been improved since that time. History of TIA, hypertension obesity. Underwent an echocardiogram during this admission that showed LV mildly dilated with an LVEF of 35-40%. Mildly dilated RV with RVSP 53 mm of mercury and moderate TR. AFib is relatively well controlled now with a rate of about 100. Stress test was completed that showed fixed defect of the inferior and apex. Currently, complaining of shortness for breath with exertion, orthopnea. Has cardiology follow up in [place]. Allergies: Coded Allergies: amoxicillin (Unverified Allergy, Severe, Hives and edema, 03/30/25) aspirin (Unverified Allergy, Unknown, nausea and vomiting, 03/30/25) lisinopril (Unverified Adverse Reaction, Unknown, nausea, 03/30/25) Home Medications Home Medications Active Midodrine HCl 5 Mg Tablet 10 Mg PO TID PRN 30 Days Take 1 tablet by mouth three times daily as needed for SBP<100 Carvedilol 3.125 Mg Tablet 3.125 Mg PO BID 30 Days Reported 8Hr Arthritis Pain (Acetaminophen) 650 Mg Tablet.er PRN Ondansetron Odt (Ondansetron HCl) 4 Mg Tab.rapdis 0.5 Tab PO PRN Potassium Chloride 10 Meq Tab.prt.sr Levocetirizine Dihydrochloride 5 Mg Tablet Famotidine 40 Mg Tablet 1 Tab PO HS Jardiance (Empagliflozin) 10 Mg Tablet 1 Tab PO DAILY Eliquis (Apixaban) 5 Mg Tablet 1 Tab PO BID Past Medical History Medical History Comment Paroxysmal atrial fibrillation Hypertension Chronic systolic heart failure Obesity TIA Past Surgical History Surgical History Comment Appendectomy Cholecystectomy Past Family History Family History: FH: cancer MOTHER Past Social History Social History Comment History of smoking. Occasional alcohol. No recreational drugs. In the process of moving. Physical Exam Last Vital Signs Recorded: RN Vital Signs have been reviewed: Yes, Temperature: 97.8, Source: Oral, Heart Rate: 100, Respiratory Rate: 18, BP: 113/89, Pulse Oximetry: 93, Weight: 137.300 Physical Exam General: Awake, alert, oriented. No apparent distress Neck: Supple. Normal range of motion. No JVD Respiratory: Lungs are clear to auscultation bilaterally. No respiratory distress. Chest: Normal shape and size. No accessory muscle use. Cardiovascular: Irregularly irregular. Slightly tachycardic. S1-S2. No murmur, gallop, rub. Gastrointestinal: Abdomen is soft, large. Nontender to palpation. Bowel sounds present. Extremities: No lower extremity edema, cyanosis or clubbing. Neurologic: Alert and oriented x4. Nonfocal Psychiatric: Normal mood and affect. Skin: Normal color. Warm and dry. Review of Systems ROS Review of systems negative except documented in HPI. Results Echocardiogram Echocardiogram Conclusion There is liwnnyuv-lk-[id number] LV systolic dysfunction present. Overall estimated LVEF is about 35-40%. LV is mildly dilated with mild concentric hypertrophy. Overall systolic function is moderate to severely reduced with global hypokinesis. Abnormal septal motion. RV appears mildly dilated with normal contractility. RVSP is estimated at 53 mmHG. Trace mitral regurgitation. Dictated by:ELO BHAKTA MD Dictation date and time:05/28/251837 Electronically Signed by: ELO BHAKTA MD Date and Time: 05/28/251838 Cardiac Stress Test Cardiac Stress Test [place] [id number] NUCLEAR MEDICINE Patient: DENITA MENDIETA Medical Record: [id number] [facility] : 1975, Age: 49 Sex: Male Location: [facility] 3S Patient Status: ADM IN Service Date/Time: 05/29/25/ Ordering Physician: OMAR CAMACHO Exam: NM TAWNYA SCAN HISTORY: Chest pain, global hypokinesis in echocardiogram TECHNIQUE: At peak stress, 34.9 mCi of sestamibi was administered intravenously. Soon thereafter, gated SPECT imaging of the heart was performed with the patient in the supine position. At rest, 8.7 mCi of sestamibi was administered intravenously. Soon thereafter, gated SPECT imaging of the heart was performed with the patient in the supine position. FINDINGS: There is a small fixed perfusion defect at the inferior wall. There is a tiny fixed perfusion defect at the cardiac apex. No reversible perfusion defect is seen. No reversible perfusion defect seen. There is global hypokinesis. The ejection fraction is 23%. IMPRESSION: Small fixed perfusion defect of the inferior wall. Tiny fixed perfusion defect at the cardiac apex. No reversible perfusion defect. Global hypokinesis with ejection fraction of 23%. Electronically Signed by:VINCENT LIEBERMAN MD Date & Time: 05/29/25 1016 Dictated by: VINCENT LIEBERMAN MD Dictation date and time: 05/29/25 1016 Primary Care Provider: NO PRIMARY CARE PROVIDER cc: OMAR CAMACHO, RES ~ Other Other [place] [id number] CAT SCAN Patient: DENITA MENDIETA Medical Record: [id number] [facility] : 1975, Age: 49 Sex: Male Location: [facility] Patient Status: ADM IN Service Date/Time: 05/28/25/ Ordering Physician: JENNIFER OLIVEIRA Exam: CT CHEST Indication: Cough, SOB Technique: CT axial images of the chest are obtained without contrast. Coronal and sagittal reformats were obtained. Radiation Dose Information: CTDI volume is 19 mGy. Dose-length product is 660 mGy*cm Comparison: None FINDINGS: There is limited interpretation of the abdomen and pelvis without administration of intravenous contrast. The trachea is patent. No pneumothorax. No pulmonary airspace consolidation. Bilateral lower lobe atelectasis, [id number]-omlu-right. Heart size at the upper limits of normal. Coronary artery calcification disease. Tiny bilateral pleural effusions. No supraclavicular or axillary lymphadenopathy. Hepatic steatosis. No aggressive osseous process. IMPRESSION: Limited evaluation without contrast. No pulmonary airspace consolidation. Bilateral lower lobe atelectasis. Tiny bilateral pleural effusions. Borderline cardiomegaly. Coronary artery calcification disease. Other findings as described. Electronically Signed by:ROXIE JOYCE MD Date & Time: 05/28/25 1241 Dictated by: ROXIE JOYCE MD Dictation date and time: 05/28/25 1042 Primary Care Provider: NO PRIMARY CARE PROVIDER cc: JENNIFER OLIVEIRA, SAFIA Escobar Diagram Lab Result Diagram: 05/31/2551705/31/25517 Assessment/Plan Additional Plan Patient presented secondary to tachycardia and palpitations. The following is his problem list: Atrial fibrillation with rapid ventricular response Now relatively controlled --rate control with carvedilol --states he is on Eliquis as an outpatient. Strep fast score is two Heart failure with reduced ejection fraction Acute on chronic History of the same. 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 --continue Entresto 24-26 mg 0.5 tabs BID. Up titrate as blood pressure allows --continue spironolactone. Consider decreasing to 12.5 mg if needed --continue Jardiance 10 mg daily Elevated right heart pressures (RVSP 58 mmHg) Tricuspid regurgitation --diuretics as required Stress test with fixed defect. --recommend medical management. No aspirin as he is on oral anticoagulation. Statin to keep LDL less than 55 Hypertension --management as above Case discussed with Dr. Cony Agee who is in agreement with this plan Supervising MD Supervising Physician: MICHELLE Yung NP May 31, 2025 16:49
--- NOTE | 2025-05-31 17:55 | PROGRESS NOTE- Residence ---
Progress Note - Resident Providers to CC Resident Creating Document: ALICIA ZELAYA, RES ~ Ramirez-Non Protocol Ramirez Indications Met/Not Met: F/C Indications Not Met Antibiotic Timeout Antibiotic Ordered?: Yes Subjective Patient was seen and examined at bedside. Patient reports that his shortness of breath and orthopnea improved compared to the admission. Patient still continues to have mild cough with productive sputum. Patient denies any other concerns or complaints at the moment. Discontinued the nasal cannula. Objective Vital Signs Date Time Temp Pulse Resp B/P (MAP) Pulse Ox O2 Delivery O2 Flow Rate FiO2 05/31/25 15:30 100 18 Nasal Cannula 1.0 05/31/25 15:25 93 24 05/31/25 11:00 97.8 113/89 (97) Result Diagram: 05/31/25 0518 05/31/25 0518 Awake , alert and oriented to time,place, person, morbidly obese, not in distress HEENT: Atraumatic, normocephalic, PERRLA, EOMI, anicteric sclera ; pink conjunctiva, moist mucos membranes Neck: Trachea midline. Supple, normal range of motion, no JVD, no lymphadenopathy Chest and Respiratory: Mildly diminished breath sounds bilaterally, no tachypnea, wheezing, ronchi,rubs .Chest wall is symmetric and without deformity. Cardiac: S1, S2 heard, controlled heart rate, irregular rhythm, no murmurs ,no gallops, no rubs. Abdomen: Soft, No tenderness, No guarding or rigidity, Dover's sign negative. normal bowel sounds x4 quadrant, no hepatosplenomegaly MSK: Range of motion of all extremities are normal. There is no joint pain or joint swelling or joint erythema. There is no muscle pain or tenderness or swelling. Extremities: warm, well-perfused, No cyanosis, clubbing, 2+ pulses felt, no pedal edema Neurological: Mental status exam: alert and consciousness, orientation, memory, speech - Cranial nerve test: Cranial nerves II-XII intact. - Motor system: Normal Nutrition, normal tone, Power 5/5, no involuntary movements - Sensory system: Intact - Reflex testing: Biceps, triceps and knee reflexes 2+ - Cerebellar: Normal Skin: Warm and dry Psychiatry: Affect and mood are normal Coagulation Studies Laboratory Tests Test 05/28/25 05:56 D-Dimer 0.23 MG/L FEU (0-0.50) D-Dimer Comment Assessment Assessment A 49 years old male with history of atrial fibrillation, congestive heart failure, TIA, GERD presented to ED with irregular heart rate and productive cough. He recently completed 1 course of antibiotic for pneumonia. He continues to have post infectious cough most likely due to bronchitis or failed outpatient management. Plan Plan 1. Paroxysmal Atrial Fibrillation with RVR, now CVR Naveen-VASc Score 3 Acute on chronic CHFrEF (35-40%) Chest pain, ACS ruled out -At admission: HR 126 bpm, AFib with LBBB on EKG. Telemetry today shows CVR of about 100-110s. -Lexiscan shows small fixed perfusion defect of the inferior wall and cardiac apex. -Negative troponins, BNP 10394 LDL is 67 -Echo: LVEF 35-40%, moderate to severe LV systolic dysfunction. Global hypokinesis and abnormal septal motion. -continue Eliquis 5 mg p.o. b.i.d. -Atorvastatin 80 mg p.o. daily -Lasix 20 mg p.o. daily -continue GDMT: Increase dose of Coreg to 25 mg p.o. b.i.d on 05/30/25 Jardiance 10 mg p.o. daily Entresto 0.5 tabs p.o. b.i.d. Up titrate as blood pressure allows Spironolactone 25 mg p.o. daily -Patient need outpatient sleep study in view of Elevated right heart pressures (RVSP 58 mmHg) 2. Acute COPD exacerbation with acute respiratory failure, failed outpatient management Obesity hypoventilation syndrome, BMI 48.5 Sleep apnea likely Persistent cough, wheezing, productive cough white sputum (~1 cup), resolved WBC down trending, currently 13.0, normal ESR and procalcitonin CXR: No radiographic evidence of acute cardiopulmonary process. CT chest: No pulmonary airspace consolidation. Bilateral lower lobe atelectasis. Tiny bilateral pleural effusions. Continue ceftriaxone, day 4 Decreased Solu-Medrol to 40 mg b.i.d. Albuterol/ipratropium q.6 hours scheduled Incentive spirometry q.1h Mucinex 600 mg p.o. b.i.d. Outpatient sleep study recommended in view of elevated right heart pressures 3. Hypertensive urgency-resolved BP > 180/110mmHg in ED; patient previously on midodrine for hypotension. BP controlled after admission Monitor BP closely. 4. JONATHAN possibly secondary to vasomotor nephropathy Renal parameters back to normal. Monitor renal function daily. Avoid nephrotoxic agents. Code Status: Full code DVT prophylaxis: Eliquis PT: Home Independent Diet: Heart healthy diet Disposition: Continue medical treatment in PCU and telemetry monitoring. Anticipate discharge in next 24 hours. Resident attestation The above note has been reviewed and supervised by a senior resident PGY2/PGY3 Patient was seen, examined and discussed with the attending physician, Dr. BENJAMIN Zelaya MD Internal Medicine Resident, PGY 1 Date of Service: May 31, 2025 Billing Provider: JOHN ALEXANDER MD, SUNIL KUMAR, RES May 31, 2025 17:55
[2025-05-31] MEDS: methylPREDNISolone sod succ/PF 40mg inj. IV SCH (20:39)
[2025-06-01] VITALS (9 sets, daily range): BP systolic 112–129; BP diastolic 68–93; PULSE 78–116; RESP 18–22; TEMP 97.2–97.5; O2SAT 90–92
[2025-06-01 04:16] LABS: INFLUENZA TYPE A ANTIGEN RAPID NEGATIVE (Negative); INFLUENZA TYPE B ANTIGEN RAPID NEGATIVE (Negative)
[2025-06-01 06:02] LABS: MEAN PLATELET VOLUME 8.3 FL (7.4-10.4); RED CELL DISTRIBUTION WIDTH 14.3 % (11.5-14.5)
[2025-06-01 06:23] LABS: CREATININE 1.09 MG/DL (0.60-1.10); TOTAL CARBON DIOXIDE 26.4 MMOL/L (24-32); eCRCL 76 ML/MIN; eGFR 72 ML/MIN
[2025-06-01] MEDS ORDERED: SPIR25TA PO (10:34)
[2025-06-01] MEDS ORDERED: CEFD300C3 PO (10:34)
[2025-06-01] MEDS ORDERED: CARV25TA2 PO (10:34)
[2025-06-01] MEDS ORDERED: PRED10TA23 PO (10:34)
[2025-06-01] MEDS ORDERED: SACU1TAB PO (10:34)
[2025-06-01] MEDS ORDERED: LACT1CAP26 PO (10:34)
[2025-06-01] MEDS ORDERED: ATOR-2 PO (10:34)
[2025-06-01] MEDS ORDERED: GUAI600T45 PO (10:34)
[2025-06-01] MEDS ORDERED: FURO20TA4 PO (10:34)
[2025-06-01] MEDS ORDERED: BUDE10.2 INH (10:37)
[2025-06-01] MEDS ORDERED: ALBU2.5V7 NEB (10:37)
--- NOTE | 2025-06-01 18:36 | DISCHARGE SUMMARY-Residence ---
Discharge Summary Providers to CC Resident Creating Document: ALICIA BURKS SHERLYN, RES ~ Discharge Summary Admission Diagnosis: atrial fibrillation , JONATHAN Hospital Course DATE OF ADMISSION: April 26, 2025 DATE OF DISCHARGE: May 01, 2025 Discharge Diagnosis\Comment: Paroxysmal Atrial Fibrillation with RVR, now CVR Acute on chronic CHFrEF - 35-40% Acute COPD exacerbation with acute hypoxic respiratory failure, failed outpatient management Obesity hypoventilation syndrome Morbid obesity, BMI 48.5 Possible Sleep apnea Hypertensive urgency-resolved JONATHAN possibly secondary to vasomotor nephropathy Operations\Procedures: None Consultants: Dr. Cony minaya, the patch machine operator Complications: None Condition on DC: Stable New Medications: Albuterol Sulfate (Albuterol Sulfate) 2.5 Mg/3 Ml Vial.neb 1 VIAL NEB Q4HPRN PRN for wheezing, #150 ML 0 Refills Budesonide/Formoterol Fumarate (Symbicort 160-4.5 Mcg Inhaler) 160 Mcg-4.5 Mcg/Actuation Hfa.aer.ad 2 PUFFS INH Q12H for 30 Days, #10.2 GM 0 Refills Cefdinir* (Cefdinir*) 300 Mg Capsule 1 CAP PO Q12H for 2 Days, #2 CAP Lactobacillus Rhamnosus (Culturelle) 10 Billion Cell Capsule 1 CAP PO DAILY for 30 Days, #30 CAP 0 Refills Prednisone (Prednisone) 10 Mg Tablet 0 PO DAILY, #26 TAB Take 3 tabs daily x4 days, then 2 daily x4 days 1 daily x4 days 1/2 daily x4 days then STOP Atorvastatin Calcium (Atorvastatin Calcium) 80 Mg Tablet 1 TAB PO DAILY for 30 Days, #30 TAB 0 Refills Carvedilol (Carvedilol) 25 Mg Tablet 1 TAB PO Q12H for 30 Days, #60 TAB 0 Refills Furosemide (Furosemide) 20 Mg Tablet 20 MG PO DAILY for 30 Days, #30 TAB Guaifenesin (Mucinex) 600 Mg Tablet.sa 600 MG PO BID for 10 Days, #20 TAB.SR Sacubitril/Valsartan (Entresto 24 mg-26 mg Tablet) 24 Mg-26 Mg Tablet 0.5 TABLET PO BID for 30 Days, #30 TAB Spironolactone (Aldactone) 25 Mg Tablet 25 MG PO DAILY@0830 for 30 Days, #30 TAB Continued Medications: Acetaminophen (8Hr Arthritis Pain) 650 Mg Tablet.er PRN Apixaban (Eliquis) 5 Mg Tablet 1 TAB PO BID Empagliflozin (Jardiance) 10 Mg Tablet 1 TAB PO DAILY Famotidine (Famotidine) 40 Mg Tablet 1 TAB PO HS Levocetirizine Dihydrochloride (Levocetirizine Dihydrochloride) 5 Mg Tablet ONDANSETRON ODT 4mg tablet (Ondansetron Odt) 4 Mg Tab.rapdis 0.5 TAB PO PRN Potassium Chloride (Potassium Chloride) 10 Meq Tab.prt.sr Discontinued Medications: Carvedilol (Carvedilol) 3.125 Mg Tablet 3.125 MG PO BID for 30 Days, #60 TAB Midodrine HCl (Midodrine HCl) 5 Mg Tablet 10 MG PO TID PRN for hypotension for 30 Days, #90 TAB Take 1 tablet by mouth three times daily as needed for SBP<100 Discharge Summary: History of present illness by admitting physician: 49-year-old male with a past medical history of congestive heart failure, Atrial fibrillation, HTN,Pneumonia and morbid obesity presents to the ED for evaluation of irregular heart rate. The patient was at an urgent care clinic after completing a course of antibiotics for pneumonia, where he was noted to have a heart rate in the 130s and elevated blood pressure, he was referred to the ED for further management.The patient reports generalized weakness, persistent cough with wheezing, and production of approximately one cup of white sputum. He also endorses sore throat and mild chest tightness rated 3/10 and Nausea. He denies palpitations, fever, chills, hemoptysis, dizziness, syncope, vomiting, abdominal pain, diarrhea, urinary symptoms, or recent weight loss.Regarding his CHF history, the patient reports shortness of breath and orthopnea, requiring five pillows and an inclined bed for comfort. He denies paroxysmal nocturnal dyspnea and lower extremity edema, sick contacts, or allergen exposure reported. The patient is on eliquis. Course in the hospital: Patient was admitted to the hospital with irregular heartbeat, increased shortness of breath,orthopnea and EKG shows AFib with RVR, [place] [address], LDL is 67. Metoprolol tartrate and diltiazem was given in the ER. Echo shows Overall systolic function is moderately reduced with global hypokinesis, Abnormal septal motion, LVEF is 35-40%. Patient underwent Lexiscan which shows small fixed perfusion defect of the inferior wall and cardiac apex. ACS was ruled out, Dr. Cony Minaya, the patch machine operator was consulted. Patient was started on home medication Eliquis 5 mg b.i.d. and titrated GDMT drugs (Jardiance, Entresto, spironolactone,Coreg). Patient has acute COPD exacerbation with acute hypoxic respiratory failure required oxygen supply and also treated with IV ceftriaxone, Solu-Medrol and nebulization treatments. Echo also shows elevated right heart pressure with RVSP of 58 mm of Hg and was advised for outpatient sleep study. Patient has hypertensive urgency which was resolved with Coreg and Lasix. Patient has acute kidney injury which was resolved with hydration. Care plan discussed patient who is awake alert, all questions answered and all concerns addressed appropriately. All labs, diagnostic workup and discharge plan discussed with patient and in detail before her discharge. Discharge instructions provided to the patient. Imaging: Chest x-ray: No radiographic evidence of acute cardiopulmonary process. CT chest: No pulmonary airspace consolidation. Bilateral lower lobe atelectasis. Tiny bilateral pleural effusions. Borderline cardiomegaly. Coronary artery calcification disease. Echocardiogram: There is [id number] LV systolic dysfunction present. Overall estimated LVEF is about 35-40%. LV is mildly dilated with mild concentric hypertrophy. Overall systolic function is moderate to severely reduced with global hypokinesis. Abnormal septal motion. RV appears mildly dilated with normal contractility. RVSP is estimated at 53 mmHG. Trace mitral regurgitation. Cardiac imaging NM: Small fixed perfusion defect of the inferior wall. Tiny fixed perfusion defect at the cardiac apex. No reversible perfusion defect. Global hypokinesis with ejection fraction of 23%. Discharge instructions: follow up with PCP and request for sleep study Follow up with patch machine operator and titrate GDMT drugs Advised to compliant with inhalers and heart failure medications Physical exam at discharge: Awake , alert and oriented to time,place, person, morbidly obese, not in distress HEENT: Atraumatic, normocephalic, PERRLA, EOMI, anicteric sclera ; pink conjunctiva, moist mucos membranes Neck: Trachea midline. Supple, normal range of motion, no JVD, no lymphadenopathy Chest and Respiratory: Mildly diminished breath sounds bilaterally, no tachypnea, wheezing, ronchi,rubs .Chest wall is symmetric and without deformity. Cardiac: S1, S2 heard, controlled heart rate, irregular rhythm, no murmurs ,no gallops, no rubs. Abdomen: Soft, No tenderness, No guarding or rigidity, Dover's sign negative. normal bowel sounds x4 quadrant, no hepatosplenomegaly MSK: Range of motion of all extremities are normal. There is no joint pain or joint swelling or joint erythema. There is no muscle pain or tenderness or swelling. Extremities: warm, well-perfused, No cyanosis, clubbing, 2+ pulses felt, no pedal edema Neurological: Mental status exam: alert and consciousness, orientation, memory, speech - Cranial nerve test: Cranial nerves II-XII intact. - Motor system: Normal Nutrition, normal tone, Power 5/5, no involuntary movements - Sensory system: Intact - Reflex testing: Biceps, triceps and knee reflexes 2+ - Cerebellar: Normal Skin: Warm and dry Psychiatry: Affect and mood are normal Vital Signs Date Time Temp Pulse Resp B/P (MAP) Pulse Ox O2 Delivery O2 Flow Rate FiO2 06/01/25 13:38 86 18 Room Air 0.0 06/01/25 13:32 92 21 06/01/25 11:00 97.2 112/68 (83) Laboratory Tests Test 05/31/25 05:18 06/01/25 03:54 06/01/25 05:21 White Blood Count 13.0 X10'3 14.6 X10'3 Red Blood Count 4.77 X10'6 4.64 X10'6 Hemoglobin 14.8 g/dl 14.8 g/dl Hematocrit 44.9 % 43.6 % Mean Corpuscular Volume 94.1 FL 93.9 FL Mean Corpuscular Hemoglobin 31.0 PG 31.8 PG Mean Corpuscular Hemoglobin Concent 32.9 g/dL 33.9 g/dL Red Cell Distribution Width 14.3 % 14.3 % Platelet Count 332 X10'3 322 X10'3 Mean Platelet Volume 8.2 FL 8.3 FL Neutrophils (%) (Auto) 89.8 % 87.8 % Lymphocytes (%) (Auto) 6.5 % 7.3 % Monocytes (%) (Auto) 3.5 % 4.8 % Eosinophils (%) (Auto) 0 % 0 % Basophils (%) (Auto) 0.2 % 0.1 % Neutrophils # (Auto) 11.6 X10'3 12.8 X10'3 Lymphocytes # (Auto) 0.8 X10'3 1.1 X10'3 Monocytes # (Auto) 0.5 X10'3 0.7 X10'3 Eosinophils # (Auto) 0.0 X10'3 0.0 X10'3 Basophils # (Auto) 0.0 X10'3 0.0 X10'3 CBC Comment Sodium Level 134 MMOL/L 132 MMOL/L Potassium Level 3.8 MMOL/L 3.7 MMOL/L Chloride Level 99 MMOL/L 98 MMOL/L Carbon Dioxide Level 25.8 MMOL/L 26.4 MMOL/L Anion Gap 9 8 Blood Urea Nitrogen 24 MG/DL 22 MG/DL Creatinine 1.05 MG/DL 1.09 MG/DL Estimated GFR/1.73 m2 75 ML/MIN 72 ML/MIN BUN/Creatinine Ratio 22.9 20.2 Glucose Level 211 MG/DL 178 MG/DL Calcium Level 8.5 MG/DL 8.7 MG/DL Total Bilirubin 0.7 MG/DL 0.6 MG/DL Aspartate Amino Transf (AST/SGOT) 14 U/L 14 U/L Alanine Aminotransferase (ALT/SGPT) 27 U/L 29 U/L Alkaline Phosphatase 80 IU/L 73 IU/L Total Protein 6.9 G/DL 6.8 G/DL Albumin 3.3 G/DL 3.3 G/DL Globulin 3.6 G/DL 3.5 G/DL Albumin/Globulin Ratio 0.9 0.9 Chemistry Comments Influenza Type A Antigen Negative Influenza Type B Antigen Negative *Problems/Diagnosis: (1) Paroxysmal atrial fibrillation with RVR (2) Acute on chronic heart failure with reduced ejection fraction (HFrEF, <= 40%) (3) COPD with acute exacerbation (4) Acute respiratory failure (5) Obesity hypoventilation syndrome (6) Hypertensive urgency (7) Acute kidney injury (8) Paroxysmal atrial fibrillation with RVR (9) Acute on chronic heart failure with reduced ejection fraction (HFrEF, <= 40%) and combined systolic and diastolic dysfunction Total Time Spent on D/C: > 30 Minutes Date of Service: Jun 01, 2025 Billing Provider: JOHN ALEXANDER MD, SUNIL KUMAR, RES Jun 01, 2025 17:59
== END 2025-06-01 14:24 | disposition home or self-care (01) | DRG 133 ==
LOC: ER 20:07 → ED HOLD 05-28 02:04 → PCU 3S 05-28 05:27
PROVIDERS: ADMIT Internal Medicine; ATTEND Family Medicine
PROC: 4A02XM4 Measurement of Cardiac Total Activity, External Approach (ICD-10-PCS; principal; 2025-05-29)
PROC: 3E033HZ Introduction of Radioactive Substance into Peripheral Vein, Percutaneous Approach (ICD-10-PCS; 2025-05-29)
DX: J96.01 Acute respiratory failure with hypoxia (principal); N17.0 Acute kidney failure with tubular necrosis; I50.23 Acute on chronic systolic (congestive) heart failure; J18.9 Pneumonia, unspecified organism; I13.0 Hypertensive heart and chronic kidney disease with heart failure and stage 1 through stage 4 chronic kidney disease, or unspecified chronic kidney disease; J44.0 Chronic obstructive pulmonary disease with (acute) lower respiratory infection; Z79.01 Long term (current) use of anticoagulants; E66.2 Morbid (severe) obesity with alveolar hypoventilation; I07.1 Rheumatic tricuspid insufficiency; N18.30 Chronic kidney disease, stage 3 unspecified; Z20.822 Contact with and (suspected) exposure to COVID-19; I48.0 Paroxysmal atrial fibrillation; I16.0 Hypertensive urgency; J44.1 Chronic obstructive pulmonary disease with (acute) exacerbation; Z88.1 Allergy status to other antibiotic agents; Z88.8 Allergy status to other drugs, medicaments and biological substances; Z79.899 Other long term (current) drug therapy; Z68.42 Body mass index [BMI] 45.0-49.9, adult; Z86.73 Personal history of transient ischemic attack (TIA), and cerebral infarction without residual deficits; Z87.891 Personal history of nicotine dependence
CPT/HCPCS: 36415; 71045; 71250; 78452; 80048; 80053; 80061; 81001; 82570; 83036; 83605; 83735; 83880; 83935; 84133; 84145; 84156; 84300; 84443; 84484; 85025; 85379; 85651; 86140; 87040; 87070; 87081; 87207; 87804; 87811; 93005; 93017; 93308; 94640; 94760; 96374; 97116; 97161; 97530; 99285; A4615; A9500; G0378; J0456; J0696; J1938; J2785; J2919; J3490; J7030; J7040